=== PATIENT | female | born 1965 | race American Indian/Alaskan Native ===

== ENCOUNTER 2016-11-25 09:46 | Outpatient (CLI) | payer MEDICARE ==
--- NOTE | 2016-11-25 10:27 | Mammography Report ---
Bilateral mammogram: Compared to 11/16/14. CAD study utilized. Findings: Predominance and adipose tissue bilaterally. No mass or microcalcification. Benign axilla. Impression: Benign findings. Annual followup recommended. BI-RADS CATEGORY: 2 = Benign ACR BI-RADS MAMMOGRAPHIC CODES: 0 = Needs additional imaging evaluation; 1 = Negative; 2 = Benign; 3 = Probably benign; 4 = Suspicious; 5 = Malignant; 6 = Known biopsy-proven malignancy COMMENT: 1. Dense breast tissue, i.e., adenosis, fibrocystic changes, etc., may obscure an underlying neoplasm. 2. Approximately 10% of cancers are not detected with mammography. 3. A negative mammography report should not delay biopsy if a clinically suspicious mass is present. COMMENT: Patient follow-up letters are generated in [employer].
== END 2016-11-25 09:47 | disposition home or self-care (01) ==
LOC: MAMMO 09:46
PROVIDERS: ATTEND Internal Medicine
DX: Z12.31 Encounter for screening mammogram for malignant neoplasm of breast (principal); I10 Essential (primary) hypertension; I26.99 Other pulmonary embolism without acute cor pulmonale
CPT/HCPCS: 77067; G0202

== ENCOUNTER 2017-12-02 12:46 | Outpatient (CLI) | payer MEDICARE ==
--- NOTE | 2017-12-02 14:21 | Mammography Report ---
BILATERAL DIGITAL SCREENING MAMMOGRAM with CAD: 12/02/17 12:46:00 CLINICAL: Routine screening. COMPARISON:11/25/16 FINDINGS: The breasts are almost entirely fatty. No mass, architectural distortion or suspicious calcifications. IMPRESSION: No mammographic evidence of malignancy. BI-RADS CATEGORY: 1 - - Negative RECOMMENDATION: Routine mammographic screening in one year. COMMENT: Patient follow-up letters are generated by our [employer] application.
== END 2017-12-02 12:47 | disposition home or self-care (01) ==
LOC: MAMMO 12:46
PROVIDERS: ATTEND Internal Medicine
DX: Z12.31 Encounter for screening mammogram for malignant neoplasm of breast (principal)
CPT/HCPCS: 77067

== ENCOUNTER 2018-12-05 10:27 | Outpatient (CLI) | payer MEDICARE ==
--- NOTE | 2018-12-05 11:38 | Mammography Report ---
DIGITAL SCREENING MAMMOGRAM WITH CAD INDICATION: Routine screening mammography. TECHNIQUE: Digital bilateral 2D mammography was obtained in the craniocaudal and mediolateral obliq ue projections. This examination was interpreted with the benefit of Computer-Aided Detection analysi s. COMPARISON: 12/02/2017 FINDINGS: Breast Density: The breasts are almost entirely fatty. There is no evidence of dominant mass, suspicious calcifications or architectural distortion in eith er breast. IMPRESSION: BI-RADS Category 1: Negative. No mammographic evidence of malignancy. Recommend routine screening m ammography in one year. A "normal" or negative report should not discourage follow up or biopsy of a clinically significant f inding. A written summary of these findings will be mailed to the patient. The patient will be entered into a mammography reporting system which will generate a reminder letter for the patient's next appointmen t at the appropriate interval. The [employer] recommends yearly mammograms starting at age 40 and continuing as l winsome as a woman is in good health. Breast MRI is recommended for women with an approximate 20-25% or greater lifetime risk of breast cancer, including women with a strong family history of breast or ova cristhian cancer or who have been treated for Hodgkin's disease. Signer Name: Frantz Cabrera MD Signed: 12/05/2018 11:33 AM Workstation Name: [id number]
== END 2018-12-05 10:28 | disposition home or self-care (01) ==
LOC: MAMMO 10:27
PROVIDERS: ATTEND Internal Medicine
DX: Z12.31 Encounter for screening mammogram for malignant neoplasm of breast (principal); I10 Essential (primary) hypertension
CPT/HCPCS: 77067

== ENCOUNTER 2020-11-19 08:47 | Emergency (ER) | payer MEDICARE ==
--- NOTE | 2020-11-19 09:00 | Emergency Department Report ---
ED Neuro Deficit HPI - General Chief Complaint: Dizziness Stated Complaint: DIZZY,HTN Time Seen by Provider: 11/19/20 08:51 Source: patient Mode of arrival: Stretcher Limitations: No Limitations - History of Present Illness Initial Comments: CC: headache, dizziness HPI: This is a 55 yo female with hx of HTN, DM, dyslipidemia, DVT, PE who presents with dizzness and headache upon awakening this monring. She awakened 5:30 AM to walk to bathroom. She noticed room spinning. She had difficulty keeping her balalnce. She went to bed. She had difficulty changing position. She called her son for assistance. EMS called for transport. She now has right sided pounding headache 9/10 in severity. She has had similar headache in the past. Years ago, she was diagnosed with vertigo. After extensive ENT evaluation, vertigo was not the final diagnosis according to patient's report. Vertigo-type dizziness room spinning sensation has spontaneously resolved today. Medications Pravastatin 40 mg Losartan 100 mg Amlodipine benazepril 2.5-10 mg discontinued by pharmacist Metformin 500 mg NovoLog 20 units in the morning 30 units in the evening Levemir 70 units in the morning 40 units in the evening -: This morning Location: other (Vertigo) History of same: Yes Place: home Severity: moderate Improves With: time On Anticoagulants: No Context: other (Upon awakening) Associated Symptoms: other (Difficulty walking) Treatments Prior to Arrival: other (EMS transport) - Related Data Home Medications: Home Medications Medication Instructions Recorded Confirmed Last Taken Insulin Aspart (Nf) [NovoLOG 100 0 unit SQ AC 10/09/13 10/09/13 Unknown UNITS/ML VIAL] Insulin Detemir [Levemir Flexpen] 50 unit SQ BID 10/09/13 10/09/13 Unknown Metformin HCl [Glucophage] 1,000 mg PO BID 10/09/13 10/09/13 Unknown Pioglitazone HCl [Actos] 15 mg PO QDAY 10/09/13 10/09/13 Unknown Pravastatin [Pravachol] 40 mg PO QHS 10/09/13 10/09/13 Unknown Valsartan/Hydrochlorothiazide 1 each PO QDAY 10/09/13 10/09/13 Unknown [Valsartan-Hctz 320-25 mg] Previous Rx's Medication Instructions Recorded Last Taken Type Diphenoxylate HCl/Atropine 1 tab-cap PO Q6HR PRN #30 tablet 10/10/13 Unknown Rx [Lomotil 2.5-0.025 mg Tablet] Meclizine [Antivert] 25 mg PO Q8H PRN #30 tablet 10/10/13 Unknown Rx Allergies/Adverse Reactions: Allergies Allergy/AdvReac Type Severity Reaction Status Date / Time acetaminophen [From Lortab] AdvReac Unknown Unverified 11/25/16 09:46 hydrocodone bitartrate AdvReac Unknown Unverified 11/25/16 09:46 [From Lortab] ED Review of Systems ROS: Stated complaint: DIZZY,HTN Other details as noted in HPI Comment: All other systems reviewed and negative Constitutional: denies: fever, malaise Respiratory: denies: cough, shortness of breath Cardiovascular: denies: chest pain Neurological: headache, abnormal gait, vertigo. denies: numbness, paresthesias, confusion ED Past Medical Hx - Past Medical History Previous Medical History?: Yes Hx Hypertension: Yes Hx CVA: No Hx Heart Attack/AMI: No Hx Congestive Heart Failure: No Hx Diabetes: Yes Hx Deep Vein Thrombosis: Yes Hx Pulmonary Embolism: Yes Hx GERD: No Hx Liver Disease: No Hx Renal Disease: No Hx Sickle Cell Disease: No Hx Arthritis: No Hx Headaches / Migraines: No Hx Seizures: No Hx Kidney Stones: No Hx Psychiatric Treatment: No Hx Asthma: No Hx COPD: No Hx Tuberculosis: No Hx Dementia: No Hx HIV: No Additional medical history: High cholesterol - Surgical History Past Surgical History?: Yes Additional Surgical History: Lining of uterus removed - Social History Smoking Status: Never Smoker - Medications Home Medications: Home Medications Medication Instructions Recorded Confirmed Last Taken Type Insulin Aspart (Nf) [NovoLOG 100 0 unit SQ AC 10/09/13 10/09/13 Unknown History UNITS/ML VIAL] Insulin Detemir [Levemir Flexpen] 50 unit SQ BID 10/09/13 10/09/13 Unknown History Metformin HCl [Glucophage] 1,000 mg PO BID 10/09/13 10/09/13 Unknown History Pioglitazone HCl [Actos] 15 mg PO QDAY 10/09/13 10/09/13 Unknown History Pravastatin [Pravachol] 40 mg PO QHS 10/09/13 10/09/13 Unknown History Valsartan/Hydrochlorothiazide 1 each PO QDAY 10/09/13 10/09/13 Unknown History [Valsartan-Hctz 320-25 mg] Diphenoxylate HCl/Atropine 1 tab-cap PO Q6HR PRN #30 tablet 10/10/13 Unknown Rx [Lomotil 2.5-0.025 mg Tablet] Meclizine [Antivert] 25 mg PO Q8H PRN #30 tablet 10/10/13 Unknown Rx ED Neuro Physical Exam - General Limitations: No Limitations General appearance: alert, in no apparent distress Suspected Stroke: No - Head Head exam: Present: atraumatic, normocephalic - Eye Eye exam: Present: normal appearance - ENT ENT exam: Present: mucous membranes moist - Neck Neck exam: Present: normal inspection, full ROM - Respiratory Respiratory exam: Present: normal lung sounds bilaterally. Absent: respiratory distress, wheezes, rales, rhonchi - Cardiovascular Cardiovascular Exam: Present: regular rate, normal rhythm, normal heart sounds. Absent: systolic murmur, diastolic murmur, rubs, gallop - GI/Abdominal GI/Abdominal exam: Present: soft, normal bowel sounds. Absent: distended, tenderness, guarding, rebound - Extremities Exam Extremities exam: Present: normal inspection - Neurological Exam Neurological exam: Present: alert, oriented X3 - NIHSS Assessment Interval: Baseline 1a. Level of Consciousness: alert/keenly responsive 1b. LOC Questions: answers both correctly 1c. LOC Commands: performs tasks correctly 2. Best Gaze: normal 3. Visual: no visual loss 4. Facial Palsy: normal symmetrical movement 5b. Motor Arm Right: no drift 5a. Motor Arm Left: no drift 6a. Motor Leg Left: no drift 6b. Motor Leg Right: no drift 7. Limb Ataxia: absent 8. Sensory: normal 9. Best Language: no aphasia 10. Dysarthria: normal 11. Extinction/Inattention: no abnormality Total Score: 0 Stroke Severity: No Stroke Symptoms - Psychiatric Psychiatric exam: Present: normal affect, normal mood - Skin Skin exam: Present: warm, dry, intact, normal color. Absent: rash ED Course Vital Signs 11/19/20 11/19/20 11/19/20 08:49 08:52 09:09 Pulse Rate 101 H Respiratory 18 21 Rate Blood Pressure Blood Pressure 233/115 [Right] O2 Sat by Pulse 98 95 98 Oximetry 11/19/20 11/19/20 11/19/20 09:13 09:16 09:30 Pulse Rate 94 H 94 H 85 Respiratory 25 H 26 H Rate Blood Pressure 174/103 233/115 Blood Pressure [Right] O2 Sat by Pulse 98 97 Oximetry 11/19/20 11/19/20 09:46 10:16 Pulse Rate 84 83 Respiratory 19 19 Rate Blood Pressure 174/103 146/86 Blood Pressure [Right] O2 Sat by Pulse 98 95 Oximetry - Lab Data Result diagrams: 11/19/20 09:32 11/19/20 09:32 Lab Results 11/19/20 11/19/20 11/19/20 Range/Units 09:32 09:32 09:32 WBC 8.2 (4.5-11.0) K/mm3 RBC 4.53 (3.65-5.03) M/mm3 Hgb 13.7 (10.1-14.3) gm/dl Hct 40.7 (30.3-42.9) % MCV 90 (79-97) fl MCH 30 (28-32) pg MCHC 34 (30-34) % RDW 15.5 H (13.2-15.2) % Plt Count 250 (140-440) K/mm3 Lymph % (Auto) Outbound Supervisor [facility] % (Auto) Outbound Supervisor Eos % (Auto) Outbound Supervisor Baso % (Auto) Outbound Supervisor Lymph # (Auto) Outbound Supervisor [facility] # (Auto) Outbound Supervisor Eos # (Auto) Outbound Supervisor Baso # (Auto) Outbound Supervisor Seg Neutrophils % Outbound Supervisor Seg Neutrophils # Outbound Supervisor PT 12.9 (12.2-14.9) Sec. INR 0.92 (0.87-1.13) APTT 26.4 (24.2-36.6) Sec. Sodium 137 (137-145) mmol/L Potassium 4.4 (3.6-5.0) mmol/L Chloride 97.6 L (98-107) mmol/L Carbon Dioxide 31 H (22-30) mmol/L Anion Gap 13 mmol/L BUN 14 (7-17) mg/dL Creatinine 0.8 (0.6-1.2) mg/dL Estimated GFR > 60 ml/min BUN/Creatinine Ratio 18 % Glucose 287 H (65-100) mg/dL Calcium 9.4 (8.4-10.2) mg/dL Total Bilirubin 0.30 (0.1-1.2) mg/dL AST 23 (5-40) units/L ALT 25 (7-56) units/L Alkaline Phosphatase 105 (35-129) units/L Troponin T < 0.010 (0.00-0.029) ng/mL NT-Pro-B Natriuret Pep 15.22 (0-900) pg/mL Total Protein 7.2 (6.3-8.2) g/dL Albumin 4.1 (3.9-5) g/dL Albumin/Globulin Ratio 1.3 % - EKG Data -: EKG Interpreted by Ar EKG shows normal: sinus rhythm, axis Rate: normal 11/19/20 09:40 EKG obtained 0934 EKG interpreted by me Rate 85 bpm normal axis prolonged IN interval normal QTC no ST elevation poor R wave progression anterior leads nonischemic T wave pattern - Radiology Data Radiology results: report reviewed Patient Name: KARINA HDEZ Gender: Female Date of : 1965 Referring Provider: DAVIS GARRETT Organization: [facility] Accession Number: [id number] Requested Date: November 19, 2020 08:52 Report Status: Final Requested Procedure: 1 Procedure Description: XR chest 1V ap Modality: XR Findings Reporting MD: Gopi Bird Dictation Time: November 19, 2020 08:17 Autocad Operator: Not available Bomb Squad Officer Date: CHEST 1 VIEW INDICATION: stroke symptoms. COMPARISON: None FINDINGS: Support devices: None. Heart: Within normal limits. Lungs/Pleura: No acute air space or interstitial disease. Additional findings: None. IMPRESSION: No acute findings. Signer Name: Gopi Bird Jr, MD Signed: 11/19/2020 8:17 AM Workstation Name: [id number] Findings Reporting MD: Malika Romero Dictation Time: November 19, 2020 08:37 Autocad Operator: Not available Bomb Squad Officer Date: NONENHANCED CT SCAN OF THE HEAD: INDICATION / CLINICAL INFORMATION: 55 years Female; Stroke symptoms. TECHNIQUE: Routine CT head without contrast. All CT scans at this location are performed using CT dose reduction for ALARA by means of automated exposure control. COMPARISON: None. FINDINGS: BRAIN / INTRACRANIAL CONTENTS: No acute hemorrhage, mass effect, midline shift, hydrocephalus, or acute, large territorial infarct. Subtle streaky chronic ischemic area in the left cerebellar hemispheric white matter confluent periventricular and deep hemispheric white matter low intensity attenuation areas due to chronic small vessel disease; middle cerebral arteries, internal carotid artery termination, basilar tip in the branches of the middle cerebral artery in the sylvian fissure are normal CRANIOCERVICAL JUNCTION: No significant abnormality. ORBITS: No significant abnormality of visualized orbits. SINUSES / MASTOIDS: No significant abnormality of the visualized paranasal sinuses or mastoid air cells. ADDITIONAL FINDINGS: None. IMPRESSION: No intracerebral hemorrhage or stroke mimics; no acute focal parenchymal lesion Signer Name: Malika Romero MD Signed: 11/19/2020 8:37 AM Workstation Name: [id number] - Medical Decision Making 1. Benign positional vertigo: Patient has had recurrence of thisymptoms, with morning onset typical presentation for BPH, patient did not have associated neurological symptoms. 2. Hypertensive urgency due to medication noncompliance. Patient stopped taking amlodipine benazepril after consulting pharmacist. He felt as if she was taking too much medication. She only takes losartan at this time. 3. Tension headache: Resolved with blood pressure control and observation. ~Headache for patient. Patient feels well at this time. No indication of CVA. CBC chemistry within normal limits. CT head without contrast revealed chronic nonspecific findings. - Differential Diagnosis CVA, intracranial mass Critical Care Time: Yes Critical care time in (mins) excluding proc time.: 40 Critical care attestation.: If time is entered above; I have spent that time in minutes in the direct care of this critically ill patient, excluding procedure time. 40 minutes of critical care time excluding procedures were used in the care of the patient. I came immediately to the bedside upon patient's arrival. I screened patient for stroke symptoms at the ambulance bay. I obtained history from EMS at the bedside. I discussed treatment plan with the nursing team members. I reviewed electronic record. I kept the family members informed. Patient required multiple interventions and reassessments. ED Disposition Clinical Impression: Benign positional vertigo, Hypertensive urgency, Tension headache Disposition: DC-01 TO HOME OR SELFCARE Is pt being admited?: No Does the pt Need Aspirin: No Condition: Stable Instructions: Tension Headache, Adult, [id number], Vertigo, [id number], Man aging Your Hypertension Referrals: SOLO FATIMA MD [Primary Care Provider] - 3-5 Days
--- NOTE | 2020-11-19 09:21 | XRay Report ---
CHEST 1 VIEW INDICATION: stroke symptoms. COMPARISON: None FINDINGS: Support devices: None. Heart: Within normal limits. Lungs/Pleura: No acute air space or interstitial disease. Additional findings: None. IMPRESSION: No acute findings. Signer Name: Gopi Bird Jr, MD Signed: 11/19/2020 9:17 AM Workstation Name: [id number]
--- NOTE | 2020-11-19 09:41 | Cat Scan Report ---
NONENHANCED CT SCAN OF THE HEAD: INDICATION / CLINICAL INFORMATION: 55 years Female; Stroke symptoms. TECHNIQUE: Routine CT head without contrast. All CT scans at this location are performed using CT dos e reduction for ALARA by means of automated exposure control. COMPARISON: None. FINDINGS: BRAIN / INTRACRANIAL CONTENTS: No acute hemorrhage, mass effect, midline shift, hydrocephalus, or acu te, large territorial infarct. Subtle streaky chronic ischemic area in the left cerebellar hemispheri c white matter confluent periventricular and deep hemispheric white matter low intensity attenuation areas due to chronic small vessel disease; middle cerebral arteries, internal carotid artery terminat ion, basilar tip in the branches of the middle cerebral artery in the sylvian fissure are normal CRANIOCERVICAL JUNCTION: No significant abnormality. ORBITS: No significant abnormality of visualized orbits. SINUSES / MASTOIDS: No significant abnormality of the visualized paranasal sinuses or mastoid air nandini ls. ADDITIONAL FINDINGS: None. IMPRESSION: No intracerebral hemorrhage or stroke mimics; no acute focal parenchymal lesion Signer Name: Malika Romero MD Signed: 11/19/2020 9:37 AM Workstation Name: [email or web address]
[2020-11-19 10:06] LABS: Hematocrit 40.7 % (30.3-42.9); Hemoglobin 13.7 gm/dl (10.1-14.3); Mean Corpuscular HGB Conc 34 % (30-34); Mean Corpuscular Volume 90 fl (79-97); Platelet Count 250 K/mm3 (140-440); Red Blood Count 4.53 M/mm3 (3.65-5.03); Red Cell Distribution Width 15.5 % (13.2-15.2)
[2020-11-19 10:08] LABS: Alanine Aminotransferase 25 units/L (7-56); Albumin 4.1 g/dL (3.9-5); BUN/Creatinine Ratio 18; Blood Urea Nitrogen 14 mg/dL (7-17); Calcium 9.4 mg/dL (8.4-10.2); Hemolysis Index 8
[2020-11-19 10:18] LABS: INR 0.92 (0.87-1.13)
[2020-11-19 10:19] LABS: Partial Thromboplastin Time 26.4 Sec. (24.2-36.6)
[2020-11-19 11:02] VITALS: BP 153/86
--- NOTE | 2020-11-20 19:22 | Electrocardiograph Report ---
[facility] Test Date: 2020-11-19 Test Time: 09:34:53 Pat Name: KARINA HDEZ Department: Room: Gender: F Aircraft Pilot: MARLA : 1965 Requested By: DAVIS GARRETT Order Number: [id number] Reading MD: Kendall Tilley Measurements Intervals [place] Rate: 85 P: 8 NM: 221 QRS: 11 QRSD: 84 T: 9 QT: 380 QTc: 453 Interpretive Statements Sinus rhythm Prolonged NM interval Consider anterior infarct No previous ECG available for comparison Electronically Signed On 11-20-2020 19:22:10 EDT by Kendall Tilley
== END 2020-11-19 11:00 | disposition home or self-care (01) ==
LOC: ED 08:47
DX: H81.10 Benign paroxysmal vertigo, unspecified ear (principal); I16.0 Hypertensive urgency; G44.209 Tension-type headache, unspecified, not intractable; I10 Essential (primary) hypertension; E11.9 Type 2 diabetes mellitus without complications; E78.00 Pure hypercholesterolemia, unspecified; Z86.718 Personal history of other venous thrombosis and embolism; Z86.711 Personal history of pulmonary embolism; Z98.890 Other specified postprocedural states; Z88.6 Allergy status to analgesic agent; Z88.5 Allergy status to narcotic agent; Z79.899 Other long term (current) drug therapy
CPT/HCPCS: 36415; 70450; 71045; 80053; 83880; 84484; 85025; 85610; 85730; 93005; 96374; 99284; 99285

== ENCOUNTER 2020-12-13 12:19 | Emergency (ER) | payer MEDICARE ==
--- NOTE | 2020-12-13 15:01 | Event Note ---
ED Screening Note Date of service: 12/13/20 Time: 14:57 ED Screening Note: 55-year-old female patient with history of diabetes and hypertension presents to the emergency department with complaints of painful discoloration to her left great toe for approximately 2 weeks. Patient states her family noticed the skin color changes while on vacation in [place] last month. However, she has not consulted a physician since onset. She is not currently on antibiotics. Tachycardic and hypertensive in triage. General: Awake, appropriately interactive, no acute distress. Neck: Supple. Full range of motion intact. Cardiovascular: Normal peripheral perfusion. Pulmonary: No respiratory distress. Patient is speaking normally without use of accessory muscles. Skin: No apparent rashes or lesions. Neurological: No facial asymmetry. Speech is clear. Follows commands. Patient is alert and oriented. Musculoskeletal: Gangrenous tissue to the dorsal surface of the left great toe with pressure ulcer noted to the plantar aspect. Diminished sensation throughout. No purulent drainage. Psych: Cooperative. Appropriate mood and affect. Labs and imaging ordered. Choice of antibiotics deferred to additional ED providers following full history and comprehensive physical examination. I have greeted and performed a focused rapid initial assessment of this patient. A comprehensive ED assessment and evaluation of the patient, analysis of all test results, and completion of the medical decision-making process will be conducted by additional ED providers. This initial assessment/diagnostic orders/clinical plan/treatment(s) is/are subject to change based on patients health status, clinical progression and re-assessment. Further treatment and workup at subsequent clinical provider's discretion. Patient/guardian urged not to elope from the ED as their condition may be serious if not clinically assessed and managed.
--- NOTE | 2020-12-13 15:32 | XRay Report ---
LEFT FOOT 3 VIEWS 1509 INDICATION: left great toe infection, gangrene COMPARISON: None available. FINDINGS: Mild tarsal and ankle degenerative changes are seen. Slight arthritic changes are noted at the first metatarsophalangeal joint without significant hallux valgus. Mild hammertoe deformity is no rob of the second through fifth digits. No fractures or dislocations are seen. Mild inferior and post erior calcaneal spurring are noted. No obvious acute bony erosions are seen to suggest osteomyelitis radiographically. No soft tissue gas is noted. Foreign bodies are seen. If there is a strong clinical concern for osteomyelitis, MR is suggested. Signer Name: Tio Nathan MD Signed: 12/13/2020 3:27 PM Workstation Name: [id number]
[2020-12-13 15:56] LABS: Basophils # (Auto) 0.1 K/mm3 (0.0-0.1); Basophils % (Auto) 0.8 % (0.0-1.8); Eosinophils % (Auto) 0.6 % (0.0-4.3); Hematocrit 43.1 % (30.3-42.9); Hemoglobin 14.3 gm/dl (10.1-14.3); Lymphocytes # (Auto) 2.6 K/mm3 (1.2-5.4); Lymphocytes % (Auto) 32.5 % (13.4-35.0); Mean Corpuscular HGB Conc 33 % (30-34); Mean Corpuscular Volume 91 fl (79-97); Monocytes # (Auto) 0.6 K/mm3 (0.0-0.8); Monocytes % (Auto) 7.3 % (0.0-7.3); Platelet Count 250 K/mm3 (140-440); Red Blood Count 4.75 M/mm3 (3.65-5.03); Red Cell Distribution Width 15.8 % (13.2-15.2)
[2020-12-13 16:16] LABS: Alanine Aminotransferase 25 units/L (7-56); Albumin 4.3 g/dL (3.9-5); BUN/Creatinine Ratio 14; Blood Urea Nitrogen 11 mg/dL (7-17); Calcium 9.7 mg/dL (8.4-10.2); Hemolysis Index 15
[2020-12-13 17:26] LABS: Erythrocyte Sedimentation Rate 27 mm/Hr (0-20)
[2020-12-13] MEDS ORDERED: CLINDAMYCIN 300 MG CAP PO ONE (23:16)
--- NOTE | 2020-12-13 23:42 | Emergency Department Report ---
HPI - General Chief Complaint: Extremity Problem,Nontraumatic Time Seen by Provider: 12/13/20 22:52 - HPI HPI: This is a 55-year-old -[place] female presents to the emergency department with a complaint of a wound to the left great toe that has been going on and getting progressively worse since the end of October. She has noticed some darkening of the skin to the top of the toe and her son noticed an ulcerating wound to the toe pad. There has been some bleeding and some drainage. Patient has a past medical history of hypertension, diabetes, high cholesterol and previous DVT. She has not taken anything for symptoms prior to presentation t [facility]. No recent travel or sick contact at home. ED Past Medical Hx - Past Medical History Previous Medical History?: Yes Hx Hypertension: Yes Hx CVA: No Hx Heart Attack/AMI: No Hx Congestive Heart Failure: No Hx Diabetes: Yes Hx Deep Vein Thrombosis: Yes Hx Pulmonary Embolism: Yes Hx GERD: No Hx Liver Disease: No Hx Renal Disease: No Hx Sickle Cell Disease: No Hx Arthritis: No Hx Headaches / Migraines: No Hx Seizures: No Hx Kidney Stones: No Hx Psychiatric Treatment: No Hx Asthma: No Hx COPD: No Hx Tuberculosis: No Hx Dementia: No Hx HIV: No Additional medical history: High cholesterol - Surgical History Past Surgical History?: Yes Additional Surgical History: Lining of uterus removed - Social History Smoking Status: Never Smoker - Medications Home Medications: Home Medications Medication Instructions Recorded Confirmed Last Taken Type Insulin Aspart (Nf) [NovoLOG 100 0 unit SQ AC 10/09/13 10/09/13 Unknown History UNITS/ML VIAL] Insulin Detemir [Levemir Flexpen] 50 unit SQ BID 10/09/13 10/09/13 Unknown Hi story Metformin HCl [Glucophage] 1,000 mg PO BID 10/09/13 10/09/13 Unknown History Pioglitazone HCl [Actos] 15 mg PO QDAY 10/09/13 10/09/13 Unknown History Pravastatin [Pravachol] 40 mg PO QHS 10/09/13 10/09/13 Unknown History Valsartan/Hydrochlorothiazide 1 each PO QDAY 10/09/13 10/09/13 Unknown History [Valsartan-Hctz 320-25 mg] Diphenoxylate HCl/Atropine 1 tab-cap PO Q6HR PRN #30 tablet 10/10/13 Unknown Rx [Lomotil 2.5-0.025 mg Tablet] Meclizine [Antivert] 25 mg PO Q8H PRN #30 tablet 10/10/13 Unknown Rx Clindamycin [Clindamycin CAP] 300 mg PO Q6H #28 capsule 12/14/20 Unknown Rx ED Review of Systems ROS: Stated complaint: GANGRENE ON LT TOE Other details as noted in HPI Comment: All other systems reviewed and negative Constitutional: denies: chills, fever Eyes: denies: eye pain, vision change ENT: denies: ear pain, throat pain Respiratory: denies: cough, shortness of breath Cardiovascular: denies: chest pain, palpitations Gastrointestinal: denies: abdominal pain, vomiting Genitourinary: denies: dysuria, discharge Musculoskeletal: denies: back pain, arthralgia Skin: other (left great toe ulcer wound and darkening of skin). denies: pruritus Neurological: denies: headache, numbness Physical Exam - Physical Exam Vital Signs: Vital Signs 12/13/20 13:38 Temperature 98.3 F Pulse Rate 100 H Respiratory 16 Rate Blood Pressure 198/105 O2 Sat by Pulse 97 Oximetry Physical Exam: GENERAL: The patient is well-developed well-nourished. HENT: Normocephalic. Atraumatic. Patient has moist mucous membranes. EYES: Extraocular motions are intact. NECK: Supple. Trachea is midline. CHEST/LUNGS: Clear to auscultation. There is no respiratory distress noted. HEART/CARDIOVASCULAR: Regular. There is no tachycardia. There is no murmur. ABDOMEN: Abdomen is soft, nontender. Patient has normal bowel sounds. SKIN: Skin is warm and dry. There is a ulcerating wound that is stage III-IV to the pad of the left great toe. No current bleeding or purulent discharge. There is some darkening of the skin to the dorsal proximal portion of the left great toe. NEURO: The patient is awake, alert, and oriented. The patient is cooperative. The patient has no focal neurologic deficits. Normal speech. MUSCULOSKELETAL: There is some tenderness to palpation of the left great toe. Dorsalis pedis pulse +2/4 and capillary refill less than 2 seconds to the affected left lower extremity. There is no limitation range of motion. ED Course Vital Signs 12/13/20 13:38 Temperature 98.3 F Pulse Rate 100 H Respiratory 16 Rate Blood Pressure 198/105 O2 Sat by Pulse 97 Oximetry ED Medical Decision Making - Lab Data Result diagrams: 12/13/20 15:33 12/13/20 15:33 Lab Results 12/13/20 12/13/20 Range/Units 15:33 15:33 WBC 8.1 (4.5-11.0) K/mm3 RBC 4.75 (3.65-5.03) M/mm3 Hgb 14.3 (10.1-14.3) gm/dl Hct 43.1 H (30.3-42.9) % MCV 91 (79-97) fl MCH 30 (28-32) pg MCHC 33 (30-34) % RDW 15.8 H (13.2-15.2) % Plt Count 250 (140-440) K/mm3 Lymph % (Auto) 32.5 (13.4-35.0) % Barnes % (Auto) 7.3 (0.0-7.3) % Eos % (Auto) 0.6 (0.0-4.3) % Baso % (Auto) 0.8 (0.0-1.8) % Lymph # (Auto) 2.6 (1.2-5.4) K/mm3 Barnes # (Auto) 0.6 (0.0-0.8) K/mm3 Eos # (Auto) 0.0 (0.0-0.4) K/mm3 Baso # (Auto) 0.1 (0.0-0.1) K/mm3 Seg Neutrophils % 58.8 (40.0-70.0) % Seg Neutrophils # 4.8 (1.8-7.7) K/mm3 ESR 27 (0-20) mm/Hr Sodium 138 (137-145) mmol/L Potassium 4.2 (3.6-5.0) mmol/L Chloride 97.0 L (98-107) mmol/L Carbon Dioxide 34 H (22-30) mmol/L Anion Gap 11 mmol/L BUN 11 (7-17) mg/dL Creatinine 0.8 (0.6-1.2) mg/dL Estimated GFR > 60 ml/min BUN/Creatinine Ratio 14 % Glucose 310 H (65-100) mg/dL Calcium 9.7 (8.4-10.2) mg/dL Total Bilirubin 0.40 (0.1-1.2) mg/dL AST 19 (5-40) units/L ALT 25 (7-56) units/L Alkaline Phosphatase 116 (35-129) units/L C-Reactive Protein 0.80 (0.00-1.30) mg/dL Total Protein 7.5 (6.3-8.2) g/dL Albumin 4.3 (3.9-5) g/dL Albumin/Globulin Ratio 1.3 % - Radiology Data Radiology results: report reviewed LEFT FOOT 3 VIEWS 1509 INDICATION: left great toe infection, gangrene COMPARISON: None available. FINDINGS: Mild tarsal and ankle degenerative changes are seen. Slight arthritic changes are noted at the first metatarsophalangeal joint without significant hallux valgus. Mild hammertoe deformity is noted of the second through fifth digits. No fractures or dislocations are seen. Mild inferior and posterior calcaneal spurring are noted. No obvious acute bony erosions are seen to suggest osteomyelitis radiographically. No soft tissue gas is noted. Foreign bodies are seen. If there is a strong clinical concern for osteomyelitis, MR is suggested. - Medical Decision Making This patient presents to the emergency department for evaluation of a left great toe ulcerating wound that has been going on for the past 3 to 4 weeks. There is a stage III-IV ulcerating wound seen to the pad of the left great toe. There is also some darkening of the skin to the dorsal portion of that toe. Dorsalis pedis pulses +2/4 and capillary refill is less than 2 seconds. X-ray of the left foot, including the left great toe, does not show any evidence of osteomyelitis or soft tissue gas. Patient's labs shows hyperglycemia with a blood sugar of about 300, without evidence of ketoacidosis. There is no elevation in the anion gap. Labs do not show any significant leukocytosis. The patient does not appear to have any emergent condition that requires admission or surgical intervention. She has a diabetic ulcerating toe wound that will need outpatient follow-up with Dr. Domingo and/or wound care. The patient has been started on antibiotics. We discussed cleaning the area with soap and water and then making sure it remains dry. We also discussed signs and symptoms of worsening infection for which the patient will need emergent return to the closest ER. She was given a dose of antibiotics here and a prescription for home. All of patient's questions were answered and the patient agrees to the plan. I personally checked this patient's blood pressure prior to discharge and it had come down to 155/94 without any antihypertensive medication given. Critical Care Time: No Critical care attestation.: If time is entered above; I have spent that time in minutes in the direct care of this critically ill patient, excluding procedure time. ED Disposition Clinical Impression: Hyperglycemia Hypertension Qualifiers: Hypertension type: primary hypertension Qualified Code(s): I10 - Essential (primary) hypertension Diabetic toe ulcer Qualifiers: Diabetes mellitus type: type 1 Laterality: left Non-pressure ulcer stage: unspecified non-pressure ulcer stage Qualified Code(s): E10.621 - Type 1 diabetes mellitus with foot ulcer; L97.529 - Non-pressure chronic ulcer of other part of left foot with unspecified severity Disposition: - TO HOME OR SELFCARE Is pt being admited?: No Condition: Stable Instructions: Diabetes Mellitus and Foot Care, Hyperglycemia, Wound Care, Adult, Hypertension, Adult, Diabetes Mellitus Type 2 in Adults (ED), Hypertension (ED) Additional Instructions: Please follow-up with your primary care physician in the next few days. I am giving you a referral for Dr. Domingo, a general surgeon who does wound care. I have also given you a referral for the wound care clinic. Take all medications as prescribed. Try to stay away from foods that are high in salt and caffeinated products. Take your blood pressure medications. Keep a blood pressure log. Try to stay away from foods that are high in sugar, carbohydrates and starches. Take your diabetes medications. Keep a blood sugar log. Clean your toe wound/ulcer with soap and water and then make sure it remains dry. Please make sure you are seen immediately with any increased signs/symptoms of infection including increased pain, swelling, surrounding redness, increased color changes, development of fever. Return to the emergency department with any worsening of your symptoms, new or concerning symptoms not addressed during this current emergency department visit, or with any acute distress. Prescriptions: Clindamycin [Clindamycin CAP] 300 mg PO Q6H #28 capsule Referrals: PRIMARY CAREMD [Primary Care Provider] - 2-3 Days JO DOMINGO MD [Staff Physician] - 2-3 Days [facility] [Outside] - 2-3 Days Time of Disposition: 00:25
[2020-12-14 01:41] VITALS: BP 158/84
== END 2020-12-14 01:00 | disposition home or self-care (01) ==
LOC: ED 12:19
DX: E11.621 Type 2 diabetes mellitus with foot ulcer (principal); E11.65 Type 2 diabetes mellitus with hyperglycemia; I10 Essential (primary) hypertension; Z98.890 Other specified postprocedural states; Z79.4 Long term (current) use of insulin; Z79.899 Other long term (current) drug therapy; Z88.8 Allergy status to other drugs, medicaments and biological substances
CPT/HCPCS: 36415; 80053; 85025; 85652; 86140

== ENCOUNTER 2021-04-16 13:29 | Inpatient (IN) | payer MEDICARE ==
--- NOTE | 2021-04-16 13:58 | Emergency Department Report ---
ED Neuro Deficit HPI - General Chief Complaint: Neuro Symptoms/Deficit Stated Complaint: SLURRED SPEECH Time Seen by Provider: 04/16/21 13:48 Source: patient, RN notes reviewed, old records reviewed Mode of arrival: Ambulatory Limitations: Physical Limitation - History of Present Illness Initial Comments: This patient is a 56-year-old female. 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 Patient was admitted to the hospital December 2020 for stroke. She had an MRI which confirmed a stroke. She presents to the ER today with a complaint of "I think I had a stroke." The patient complains of painless dysarthria. She believes her last known well time is 3:00 PM yesterday. She has chronic right-sided weakness from a prior stroke. She denies physical pain at this time. She denies cough, urinary symptoms. -: hour(s) Location: speech Presenting Symptoms: Present: Unable to Speak Clearly History of same: Yes Severity: moderate Improves With: none Worsens With: none On Anticoagulants: No Context: other (Started at 3:00 yesterday) - Related Data Home Medications: Home Medications Medication Instructions Recorded Confirmed Last Taken Insulin Aspart (Nf) [NovoLOG 100 0 unit SQ AC 10/09/13 01/21/21 01/18/21 UNITS/ML VIAL] Insulin Detemir [Levemir Flexpen] 50 unit SQ BID 10/09/13 01/21/21 01/18/21 Metformin HCl [Glucophage] 1,000 mg PO BID 10/09/13 01/21/21 01/18/21 Pioglitazone HCl [Actos] 15 mg PO QDAY 10/09/13 01/21/21 01/18/21 Valsartan/Hydrochlorothiazide 1 each PO QDAY 10/09/13 01/21/21 01/18/21 [Valsartan-Hctz 320-25 mg] Previous Rx's Medication Instructions Recorded Last Taken Type Diphenoxylate HCl/Atropine 1 tab-cap PO Q6HR PRN #30 tablet 10/10/13 01/18/21 Rx [Lomotil 2.5-0.025 mg Tablet] Meclizine [Antivert] 25 mg PO Q8H PRN #30 tablet 10/10/13 01/14/21 Rx Aspirin 325 mg PO QDAY #30 tablet 01/21/21 Unknown Rx AtorvaSTATin [Lipitor] 40 mg PO QHS #30 tablet 01/21/21 Unknown Rx amLODIPine 5 mg PO QDAY #30 tablet 01/21/21 Unknown Rx Allergies/Adverse Reactions: Allergies Allergy/AdvReac Type Severity Reaction Status Date / Time acetaminophen [From Lortab] AdvReac Unknown Unverified 11/25/16 09:46 hydrocodone bitartrate AdvReac Unknown Unverified 11/25/16 09:46 [From Lortab] ED Review of Systems ROS: Stated complaint: SLURRED SPEECH Other details as noted in HPI Constitutional: denies: fever Eyes: denies: eye discharge ENT: denies: epistaxis Respiratory: denies: cough Cardiovascular: denies: chest pain Gastrointestinal: denies: abdominal pain Genitourinary: denies: dysuria Neurological: weakness (Chronic weakness), other (New onset dysarthria) ED Past Medical Hx - Past Medical History Previous Medical History?: Yes Hx Hypertension: Yes Hx CVA: No Hx Heart Attack/AMI: No Hx Congestive Heart Failure: No Hx Diabetes: Yes Hx Deep Vein Thrombosis: Yes Hx Pulmonary Embolism: Yes Hx GERD: No Hx Liver Disease: No Hx Renal Disease: No Hx Sickle Cell Disease: No Hx Arthritis: No Hx Headaches / Migraines: No Hx Seizures: No Hx Kidney Stones: No Hx Psychiatric Treatment: No Hx Asthma: No Hx COPD: No Hx Tuberculosis: No Hx Dementia: No Hx HIV: No Additional medical history: High cholesterol - Surgical History Past Surgical History?: Yes Additional Surgical History: Lining of uterus removed - Social History Smoking Status: Never Smoker Substance Use Type: None - Medications Home Medications: Home Medications Medication Instructions Recorded Confirmed Last Taken Type Insulin Aspart (Nf) [NovoLOG 100 0 unit SQ AC 10/09/13 01/21/21 01/18/21 History UNITS/ML VIAL] Insulin Detemir [Levemir Flexpen] 50 unit SQ BID 10/09/13 01/21/21 01/18/21 History Metformin HCl [Glucophage] 1,000 mg PO BID 10/09/13 01/21/21 01/18/21 History Pioglitazone HCl [Actos] 15 mg PO QDAY 10/09/13 01/21/21 01/18/21 History Valsartan/Hydrochlorothiazide 1 each PO QDAY 10/09/13 01/21/21 01/18/21 History [Valsartan-Hctz 320-25 mg] Diphenoxylate HCl/Atropine 1 tab-cap PO Q6HR PRN #30 tablet 10/10/13 01/21/21 01/18/21 Rx [Lomotil 2.5-0.025 mg Tablet] Meclizine [Antivert] 25 mg PO Q8H PRN #30 tablet 10/10/13 01/21/21 01/14/21 Rx Aspirin 325 mg PO QDAY #30 tablet 01/21/21 Unknown Rx AtorvaSTATin [Lipitor] 40 mg PO QHS #30 tablet 01/21/21 Unknown Rx amLODIPine 5 mg PO QDAY #30 tablet 01/21/21 Unknown Rx ED Neuro Physical Exam - General Limitations: Physical Limitation General appearance: alert, anxious, obese Suspected Stroke: Yes - Head Head exam: Present: atraumatic, normocephalic - Eye Eye exam: Present: normal appearance, EOMI, other (Status post cataract surgery in the bilateral eyes. Visual acuity intact to finger counting, color pe rception, reading at a close distance). Absent: nystagmus - ENT ENT exam: Present: normal exam, normal orophraynx, mucous membranes moist, normal external ear exam - Neck Neck exam: Present: normal inspection, full ROM. Absent: tenderness, meningismus - Respiratory Respiratory exam: Present: normal lung sounds bilaterally. Absent: respiratory distress, wheezes, rales, rhonchi, stridor - Cardiovascular Cardiovascular Exam: Present: regular rate, normal rhythm, normal heart sounds. Absent: bradycardia, tachycardia, irregular rhythm, systolic murmur, diastolic murmur, rubs, gallop - GI/Abdominal GI/Abdominal exam: Present: soft. Absent: distended, tenderness, guarding, rebound, rigid, pulsatile mass - Extremities Exam Extremities exam: Present: normal inspection, full ROM (Left arm and left leg. Hemiparesis right arm and right leg), pedal edema (In the bilateral lower extremities, 1+), other (2+ pulses noted in the bilateral upper and lower extremities. There is no palpable cord. negative Homans sign. Muscular compartments are soft. The pelvis is stable.) - Back Exam Back exam: Present: normal inspection. Absent: tenderness, CVA tenderness (R), CVA tenderness (L), paraspinal tenderness, vertebral tenderness - Neurological Exam Neurological exam: Present: alert, motor sensory deficit (The patient is dysarthric. 3 out of 5 strength right arm and right leg. Sensation intact to light touch left arm and left leg. Decreased sensation to light touch right arm and right leg.) - NIHSS Assessment Interval: Baseline 1a. Level of Consciousness: alert/keenly responsive 1b. LOC Questions: answers both correctly 1c. LOC Commands: performs tasks correctly 2. Best Gaze: normal 3. Visual: no visual loss 4. Facial Palsy: normal symmetrical movement 5b. Motor Arm Right: some gravity effort 5a. Motor Arm Left: drift 6a. Motor Leg Left: drift 6b. Motor Leg Right: some gravity effort 7. Limb Ataxia: present 1 limb 8. Sensory: mild/moderate sensory loss 9. Best Language: no aphasia 10. Dysarthria: mild/moderate dysarthria 11. Extinction/Inattention: no abnormality Total Score: 9 Stroke Severity: Moderate Stroke - Psychiatric Psychiatric exam: Present: anxious - Skin Skin exam: Present: warm, dry, intact, normal color. Absent: rash ED Course Vital Signs 04/16/21 04/16/21 13:32 13:35 Temperature 98 F Pulse Rate 99 H Respiratory 16 Rate Blood Pressure 146/60 [Left] O2 Sat by Pulse 98 96 Oximetry Lab Results 04/16/21 04/16/21 04/16/21 Range/Units 13:43 14:17 14:17 WBC 6.4 (4.5-11.0) K/mm3 RBC 3.86 (3.65-5.03) M/mm3 Hgb 11.2 (10.1-14.3) gm/dl Hct 35.5 (30.3-42.9) % MCV 92 (79-97) fl MCH 29 (28-32) pg MCHC 32 (30-34) % RDW 15.7 H (13.2-15.2) % Plt Count 233 (140-440) K/mm3 Lymph % (Auto) 34.0 (13.4-35.0) % [place] % (Auto) 7.7 H (0.0-7.3) % Eos % (Auto) 0.7 (0.0-4.3) % Baso % (Auto) 0.2 (0.0-1.8) % Lymph # (Auto) 2.2 (1.2-5.4) K/mm3 [place] # (Auto) 0.5 (0.0-0.8) K/mm3 Eos # (Auto) 0.0 (0.0-0.4) K/mm3 Baso # (Auto) 0.0 (0.0-0.1) K/mm3 Seg Neutrophils % 57.4 (40.0-70.0) % Seg Neutrophils # 3.7 (1.8-7.7) K/mm3 PT 12.8 (12.2-14.9) Sec. INR 0.87 (0.87-1.13) APTT 25.7 (24.2-36.6) Sec. Thrombin Time 18.8 (15.1-19.6) Sec. Sodium (137-145) mmol/L Potassium (3.6-5.0) mmol/L Chloride (98-107) mmol/L Carbon Dioxide (22-30) mmol/L Anion Gap mmol/L BUN (7-17) mg/dL Creatinine (0.6-1.2) mg/dL Estimated GFR ml/min BUN/Creatinine Ratio % Glucose (65-100) mg/dL POC Glucose 143 H (70-105) mg/dL Calcium (8.4-10.2) mg/dL Total Bilirubin (0.1-1.2) mg/dL AST (5-40) units/L ALT (7-56) units/L Alkaline Phosphatase (35-129) units/L Total Creatine Kinase (30-135) units/L CK-MB (CK-2) (0.0-4.0) ng/mL CK-MB (CK-2) Rel Index (0-4) Troponin T (0.00-0.029) ng/mL Total Protein (6.3-8.2) g/dL Albumin (3.9-5) g/dL Albumin/Globulin Ratio % 04/16/ Range/Units 14:17 WBC (4.5-11.0) K/mm3 RBC (3.65-5.03) M/mm3 Hgb (10.1-14.3) gm/dl Hct (30.3-42.9) % MCV (79-97) fl MCH (28-32) pg MCHC (30-34) % RDW (13.2-15.2) % Plt Count (140-440) K/mm3 Lymph % (Auto) (13.4-35.0) % [place] % (Auto) (0.0-7.3) % Eos % (Auto) (0.0-4.3) % Baso % (Auto) (0.0-1.8) % Lymph # (Auto) (1.2-5.4) K/mm3 [place] # (Auto) (0.0-0.8) K/mm3 Eos # (Auto) (0.0-0.4) K/mm3 Baso # (Auto) (0.0-0.1) K/mm3 Seg Neutrophils % (40.0-70.0) % Seg Neutrophils # (1.8-7.7) K/mm3 PT (12.2-14.9) Sec. INR (0.87-1.13) APTT (24.2-36.6) Sec. Thrombin Time (15.1-19.6) Sec. Sodium 138 (137-145) mmol/L Potassium 4.3 (3.6-5.0) mmol/L Chloride 98.4 (98-107) mmol/L Carbon Dioxide 26 (22-30) mmol/L Anion Gap 18 mmol/L BUN 14 (7-17) mg/dL Creatinine 0.6 (0.6-1.2) mg/dL Estimated GFR > 60 ml/min BUN/Creatinine Ratio 23 % Glucose 124 H (65-100) mg/dL POC Glucose (70-105) mg/dL Calcium 8.7 (8.4-10.2) mg/dL Total Bilirubin 0.30 (0.1-1.2) mg/dL AST 27 (5-40) units/L ALT 32 (7-56) units/L Alkaline Phosphatase 60 (35-129) units/L Total Creatine Kinase 93 (30-135) units/L CK-MB (CK-2) 1.4 (0.0-4.0) ng/mL CK-MB (CK-2) Rel Index 1.5 (0-4) Troponin T < 0.010 (0.00-0.029) ng/mL Total Protein 6.6 (6.3-8.2) g/dL Albumin 3.7 L (3.9-5) g/dL Albumin/Globulin Ratio 1.3 % - Reevaluation(s) Reevaluation #1: 04/16/21 15:03 Differential diagnosis, including but not limited to, stroke, pneumonia, urinary tract infection Assessment and plan: 56-year-old female, who presents with dysarthria within 24 hours of last known well time, with chronic right-sided hemiparesis. The patient is not a TPA candidate as she presents more than 4.5 hours after her last known well time. The patient had an MRI confirmed stroke at this hospital December 2020. Code stroke called overhead by myself CT scan of the brain suggests subacute ischemic stroke, with small quantity of hemorrhagic conversion. Patient awake and alert, and protecting airway at this time. X-ray the chest pending, urinalysis pending, CT angiogram head and neck obtained to evaluate for large vessel occlusion. Contacted neurosurgery on-call, Dr. Duvall. Discussed history, physical, imaging studies, and clinical impression. He advises admission to the ICU, repeat noncontrast CT scan of the brain, and neurochecks every 1 hour. Recommends holding aspirin, and avoiding anticoagulation medically. Recommends checking coagulation parameters. Contacted critical care physician on-call. Dr. Dallas. Discussed history, ph ysical, imaging studies, and neurosurgical recommendations. He will follow in consultation from an intensive care standpoint, and agrees with admission to the ICU. I will also defer to the inpatient team to follow-up on the patient's urinalysis. Discussed plan of care with the patient, and she is agreeable to this plan of care. Discussed history, physical, laboratory studies and imaging studies with acute neurology on care, Dr. Jenkins. He agrees with the plan of care. Hospital physician, Dr. Shant Mcdaniel to admit to IMS/icu He also endorses that he will place orders for repeat imaging in 6 hours and follow-up in a month. 04/16/21 15:07 04/16/21 15:18 - Lab Data Result diagrams: 04/16/21 14:17 04/16/21 14:17 Lab Results 04/16/21 04/16/21 04/16/21 Range/Units 13:43 14:17 14:17 WBC 6.4 (4.5-11.0) K/mm3 RBC 3.86 (3.65-5.03) M/mm3 Hgb 11.2 (10.1-14.3) gm/dl Hct 35.5 (30.3-42.9) % MCV 92 (79-97) fl MCH 29 (28-32) pg MCHC 32 (30-34) % RDW 15.7 H (13.2-15.2) % Plt Count 233 (140-440) K/mm3 Lymph % (Auto) 34.0 (13.4-35.0) % [place] % (Auto) 7.7 H (0.0-7.3) % Eos % (Auto) 0.7 (0.0-4.3) % Baso % (Auto) 0.2 (0.0-1.8) % Lymph # (Auto) 2.2 (1.2-5.4) K/mm3 [place] # (Auto) 0.5 (0.0-0.8) K/mm3 Eos # (Auto) 0.0 (0.0-0.4) K/mm3 Baso # (Auto) 0.0 (0.0-0.1) K/mm3 Seg Neutrophils % 57.4 (40.0-70.0) % Seg Neutrophils # 3.7 (1.8-7.7) K/mm3 PT 12.8 (12.2-14.9) Sec. INR 0.87 (0.87-1.13) APTT 25.7 (24.2-36.6) Sec. Thrombin Time 18.8 (15.1-19.6) Sec. Sodium (137-145) mmol/L Potassium (3.6-5.0) mmol/L Chloride (98-107) mmol/L Carbon Dioxide (22-30) mmol/L Anion Gap mmol/L BUN (7-17) mg/dL Creatinine (0.6-1.2) mg/dL Estimated GFR ml/min BUN/Creatinine Ratio % Glucose (65-100) mg/dL POC Glucose 143 H (70-105) mg/dL Calcium (8.4-10.2) mg/dL Total Bilirubin (0.1-1.2) mg/dL AST (5-40) units/L ALT (7-56) units/L Alkaline Phosphatase (35-129) units/L Total Creatine Kinase (30-135) units/L CK-MB (CK-2) (0.0-4.0) ng/mL CK-MB (CK-2) Rel Index (0-4) Troponin T (0.00-0.029) ng/mL Total Protein (6.3-8.2) g/dL Albumin (3.9-5) g/dL Albumin/Globulin Ratio % 04/16/ Range/Units 14:17 WBC (4.5-11.0) K/mm3 RBC (3.65-5.03) M/mm3 Hgb (10.1-14.3) gm/dl Hct (30.3-42.9) % MCV (79-97) fl MCH (28-32) pg MCHC (30-34) % RDW (13.2-15.2) % Plt Count (140-440) K/mm3 Lymph % (Auto) (13.4-35.0) % [place] % (Auto) (0.0-7.3) % Eos % (Auto) (0.0-4.3) % Baso % (Auto) (0.0-1.8) % Lymph # (Auto) (1.2-5.4) K/mm3 [place] # (Auto) (0.0-0.8) K/mm3 Eos # (Auto) (0.0-0.4) K/mm3 Baso # (Auto) (0.0-0.1) K/mm3 Seg Neutrophils % (40.0-70.0) % Seg Neutrophils # (1.8-7.7) K/mm3 PT (12.2-14.9) Sec. INR (0.87-1.13) APTT (24.2-36.6) Sec. Thrombin Time (15.1-19.6) Sec. Sodium 138 (137-145) mmol/L Potassium 4.3 (3.6-5.0) mmol/L Chloride 98.4 (98-107) mmol/L Carbon Dioxide 26 (22-30) mmol/L Anion Gap 18 mmol/L BUN 14 (7-17) mg/dL Creatinine 0.6 (0.6-1.2) mg/dL Estimated GFR > 60 ml/min BUN/Creatinine Ratio 23 % Glucose 124 H (65-100) mg/dL POC Glucose (70-105) mg/dL Calcium 8.7 (8.4-10.2) mg/dL Total Bilirubin 0.30 (0.1-1.2) mg/dL AST 27 (5-40) units/L ALT 32 (7-56) units/L Alkaline Phosphatase 60 (35-129) units/L Total Creatine Kinase 93 (30-135) units/L CK-MB (CK-2) 1.4 (0.0-4.0) ng/mL CK-MB (CK-2) Rel Index 1.5 (0-4) Troponin T < 0.010 (0.00-0.029) ng/mL Total Protein 6.6 (6.3-8.2) g/dL Albumin 3.7 L (3.9-5) g/dL Albumin/Globulin Ratio 1.3 % - EKG Data -: EKG Interpreted by Ct EKG shows normal: sinus rhythm Rate: normal 04/16/21 14:59 The EKG is interpreted at 14: 53 Sinus rhythm, 93 bpm. Normal axis. Normal P wave axis. First-degree AV block, NC interval 218 ms. Motion artifact, poor R wave progression. Low voltage in the lateral leads. This is an abnormal EKG. This is not a STEMI - Radiology Data Radiology results: report reviewed, image reviewed CT head/brain wo con INDICATION / CLINICAL INFORMATION: 56 years Female; Stroke symptoms CODE STROKE CALL ER MAIN AT [id number]. TECHNIQUE: Routine CT head without contrast. All CT scans at this location are performed using CT dose reduction for ALARA by means of automated exposure control. COMPARISON: The study is compared to previous CT of 01/18/2021 and MRI of 01/19/2021.. FINDINGS: BRAIN / INTRACRANIAL CONTENTS: There has been interval development of a focus of increased attenuation within the right frontoparietal region measuring 1.4 cm in greatest AP dimension. This finding would be concerning for developing a hemorrhagic infarct from 01/18/2021. There appears be milder surrounding edema. Continued follow-up would be recommended to ensure resolution of the hemorrhage and exclude underlying lesion. There have been interval evolutionary changes of the infarct involving the posterior limb of the left internal capsule from 01/18/2021 with developing encephalomalacia. There is otherwise extensive the cerebral white matter disease compatible with microvascular angiopathy at. There is mild cerebral atrophy with associated mild prominence of the ventricular system. ORBITS: No significant abnormality of visualized orbits. SINUSES / MASTOIDS: No significant abnormality in the visualized paranasal sinuses or mastoid air cells. CRANIOCERVICAL JUNCTION: No significant abnormality. ADDITIONAL FINDINGS: None. IMPRESSION: 1. The findings are indicative of developing a 1.4 cm thoracic infarct along the right frontoparietal region as a detailed above. 2. There has been interval evolutionary changes of the infarct involving the posterior limb of the left internal capsule with developing encephalomalacia from 01/18/2021. The study was specified as code stroke and called emergently to Dr. Rubi Vilchis the ER at 1:29 PM Central standard time. Signer Name: Delfino Morales MD Signed: 04/16/2021 1:31 PM Workstation Name: [id number] MRI BRAIN 01/20/2021 INDICATION / CLINICAL INFORMATION: Right-sided weakness. TECHNIQUE: Multiplanar, multisequence MR images of the brain were obtained. COMPARISON: None available. FINDINGS: BRAIN / INTRACRANIAL CONTENTS: Unenhanced MR images of the brain were obtained. There is a elongated oval shaped focus of restricted diffusion associated with the posterior limb of the left internal capsule, associated with decreased ADC signal. This is consistent with acute or recent subcortical ischemic injury. There are also 2 punctate foci of restricted diffusion in the high right and left parietal subcortical white matter, also consistent with acute ischemic injury and small vessel distribution. There is no evidence of cortical acute ischemic injury. Ventricles and sulci are slightly prominent in size, consistent with underlying cerebral atrophy, probably central. Moderate chronic white matter T2 weighted hyperintensities are present in the periventricular and deep white matter of cerebral hemispheres. There is no evidence of hemorrhage or mass. There are no abnormal extra-axial fluid collections. EXTRACRANIAL: Unremarkable CRANIOCERVICAL JUNCTION: No significant abnormality. VASCULAR FLOW-VOIDS: No significant abnormality. IMPRESSION: Focal areas of recent or acute ischemic injury in the posterior limb of the left internal capsule, and punctate foci in subcortical parietal white matter bilaterally. Signer Name: Bryan Eddy MD Signed: 01/20/2021 10:23 AM Workstation Name: [id number] CTA HEAD WITH CONTRAST HISTORY: Stroke COMPARISON: None. TECHNIQUE: Routine non-contrast CT Head, CTA of the head and post-contrast CT Head are performed. 3-D/MIP reformats postprocessed. All CT scans at this location are performed using CT dose reduction for ALARA by means of automated exposure control CONTRAST: 100 ml of Omnipaque 350 FINDINGS: CTA Head: Intracranial vertebral arteries: Right vertebral artery is the dominant artery; left vertebral artery is smaller but patent; atheromatous changes in the left vertebral artery as it enters the dura Basilar artery: No significant abnormality. Posterior cerebral arteries: No significant abnormality. Right posterior communicating artery contributes to right posterior cerebral artery Intracranial internal carotid arteries: Patent from skull base to terminus; vascular calcification in the cavernous segments bilaterally Anterior cerebral arteries: No significant abnormality. Middle cerebral arteries: No significant abnormality. Dural venous sinuses:Not optimally opacified. No significant abnormality. Additional findings: None. IMPRESSION: 1. No significant abnormality. Signer Name: Malika Romero MD Signed: 01/19/2021 3:22 PM Workstation Name: [id number] MRA HEAD 01/20/2021 INDICATION / CLINICAL INFORMATION: cva, RT SIDED WEAKNESS, . TECHNIQUE: Routine MRA of the head is performed. 3-D/MIP reformats postprocessed. COMPARISON: None available. FINDINGS: MRA HEAD: Intracranial internal carotid arteries: No significant abnormality. Anterior cerebral arteries: No significant abnormality. Middle cerebral arteries: No significant abnormality. Intracranial vertebral arteries: No significant abnormality. Basilar artery: No significant abnormality. Posterior cerebral arteries: No significant abnormality. IMPRESSION: No significant abnormality. Signer Name: Bryan dEdy MD Signed: 01/20/2021 10:28 AM Workstation Name: [id number] CTA NECK WITH CONTRAST HISTORY: Stroke COMPARISON: None. TECHNIQUE: Routine CTA of the neck was performed. 3-D/MIP reformats were postprocessed. Percentage stenosis is determined by direct quantitative measurements of diseased internal carotid artery diameter compared with normal distal internal carotid artery reference segments or by criteria similar to NASCET where applicable.All CT scans at this location are performed using CT dose reduction for ALARA by means of automated exposure control CONTRAST: 100 ml of Omnipaque 350 FINDINGS: Aortic arch: No significant abnormality. Cervical vertebral arteries: Normal right vertebral artery origin up to basilar formation; normal left vertebral artery from origin up to extraspinal segment; atherosclerotic changes in the intradural segment of left vertebral artery Common carotid arteries: No significant abnormality. Carotid bifurcations: Right carotid bifurcation: Calcified atheromatous sclerotic plaque with less than 50% stenoses at the origin of right internal carotid artery; 4 mm thick calcification posteriorly in the carotid bifurcation Left carotid bifurcation: Calcified atheromatous plaque with less than 30% stenoses in the proximal left internal carotid artery; Cervical internal carotid arteries: No significant abnormality. Additional findings: None. IMPRESSION: Opacified atheromatous plaques in both carotid bifurcations with less than 50% stenoses on the right side and less than 40% stenoses on the left side Signer Name: Malika Romero MD Signed: 01/19/2021 3:16 PM Workstation Name: [id number] CT angio head INDICATION / CLINICAL INFORMATION: 56 years Female; Stroke symptoms CODE STROKE CALL ER MAIN AT 8199 OMNI 350 100 ML stroke sx. TECHNIQUE: Thin cut axial images obtained through the head during IV bolus contrast administration. Sagittal, coronal, and 3 plane MIP reconstructions performed by the technologist. NASCET type criteria used evaluate stenoses. Automated exposure control utilized for radiation reduction purposes. COMPARISON: The study is compared to the previous CTA of 01/19/2021. FINDINGS: INTERNAL CAROTID ARTERIES: There is extensive atherosclerotic calcification involving distal internal carotid arteries bilaterally with mild narrowing of the cavernous to cl inoid segments at. The findings correlate with the previous exam. 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 There is no significant focal stenosis involving the basilar artery. CEREBRAL ARTERIES: There is developmental origin of the right SPONGE FISHERMAN at. There is no clear CTA evidence of significant developing stenosis involving proximal cerebral arteries or adjacent segments. On the earlier CT head, a focus of increased attenuation was seen at within the right frontoparietal region concerning for evolving hemorrhagic infarct at. There is s uggestion of some collateral flow and decreased peripheral vessels within this region. ANEURYSM: None identified. ADDITIONAL FINDINGS: The dural venous sinuses opacify with contrast. IMPRESSION: The findings correlate with the earlier CT head demonstrating increased attenuation along the right fr ontoparietal junction concerning for evolving hemorrhagic infarct as detailed above.. There is no clear CTA evidence of developing more proximal large vessel occlusion. There is continued atherosclerotic calcification involving distal internal carotid arteries with mild stenosis bilaterally. Signer Name: Delfino Morales MD Signed: 04/16/2021 1:55 PM Workstation Name: [id number] CT angio neck INDICATION / CLINICAL INFORMATION: 56 years Female; Stroke symptoms CODE STROKE CALL ER MAIN AT 8199 OMNI 350 100 ML stroke sx. TECHNIQUE: Thin cut axial images obtained through the head during IV bolus contrast administration. Sagittal, coronal, and 3 plane MIP reconstructions performed by the technologist. NASCET type criteria used evaluate stenoses. All CT scans at this location are performed using CT dose reduction for ALARA by means of automated exposure control. COMPARISON: None available. FINDINGS: CAROTID ARTERIES: There is atherosclerotic calcification involving proximal right carotid bifurcation and proximal right ICA with mild, approximately 30% stenosis at the origin. There is mild calcified plaque involving proximal left ICA without significant stenosis by NASCET to criteria. VERTEBRAL ARTERIES: There is notable beam hardening artifact resulting from the patient's body habitus at. However, there is developmental hypoplasia of the vertebral arteries, particularly on the left. There is no clear evidence of significant focal stenosis. ARCH: There is developmental common origin of the brachiocephalic and left common carotid arteries. There is no significant stenosis of the arch vessels. ADDITIONAL FINDINGS: Remainder of the surrounding soft tissues are grossly normal. IMPRESSION: There is atherosclerotic calcification involving right carotid bifurcation and proximal right ICA with approximately 30% stenosis by NASCET criteria. There is continued mild calcification involving the proximal left ICA without significant stenosis. Signer Name: Delfino Morales MD Signed: 04/16/2021 1:46 PM Workstation Name: [id number] - Core Measures Measure Exclusions: not indicated - Thrombolytic Inclusion/Exclusion Thrombolytic Exclusion Criteria: Symptom Onset > 3 Hours Thrombolytic Contraindications: Stroke in Past 3 Months, GI or Other Bleeding Critical Care Time: Yes Critical care time in (mins) excluding proc time.: 45 Critical care attestation.: If time is entered above; I have spent that time in minutes in the direct care of this critically ill patient, excluding procedure time. ED Disposition Clinical Impression: Obesity, morbid, BMI 40.0-49.9, Acute ischemic stroke, Intracranial hemorrhage Disposition: 09 ADMITTED INPATIENT Is pt being admited?: Yes Does the pt Need Aspirin: No Condition: Critical Referrals: [facility] [Other] - 3-5 Days
[2021-04-16 14:27] LABS: Basophils % (Auto) 0.2 % (0.0-1.8); Eosinophils % (Auto) 0.7 % (0.0-4.3); Hematocrit 35.5 % (30.3-42.9); Hemoglobin 11.2 gm/dl (10.1-14.3); Lymphocytes # (Auto) 2.2 K/mm3 (1.2-5.4); Mean Corpuscular HGB Conc 32 % (30-34); Mean Corpuscular Volume 92 fl (79-97); Monocytes # (Auto) 0.5 K/mm3 (0.0-0.8); Monocytes % (Auto) 7.7 % (0.0-7.3); Platelet Count 233 K/mm3 (140-440); Red Blood Count 3.86 M/mm3 (3.65-5.03); Red Cell Distribution Width 15.7 % (13.2-15.2)
--- NOTE | 2021-04-16 14:36 | Cat Scan Report ---
CT head/brain wo con INDICATION / CLINICAL INFORMATION: 56 years Female; Stroke symptoms CODE STROKE CALL ER MAIN AT 8199. TECHNIQUE: Routine CT head without contrast. All CT scans at this location are performed using CT dos e reduction for ALARA by means of automated exposure control. COMPARISON: The study is compared to previous CT of 01/18/2021 and MRI of 01/19/2021.. FINDINGS: BRAIN / INTRACRANIAL CONTENTS: There has been interval development of a focus of increased attenuatio n within the right frontoparietal region measuring 1.4 cm in greatest AP dimension. This finding woul d be concerning for developing a hemorrhagic infarct from 01/18/2021. There appears be milder surround ing edema. Continued follow-up would be recommended to ensure resolution of the hemorrhage and exclud e underlying lesion. There have been interval evolutionary changes of the infarct involving the posterior limb of the left internal capsule from 01/18/2021 with developing encephalomalacia. There is otherwise extensive the c erebral white matter disease compatible with microvascular angiopathy at. There is mild cerebral atro phy with associated mild prominence of the ventricular system. ORBITS: No significant abnormality of visualized orbits. SINUSES / MASTOIDS: No significant abnormality in the visualized paranasal sinuses or mastoid air nandini ls. CRANIOCERVICAL JUNCTION: No significant abnormality. ADDITIONAL FINDINGS: None. IMPRESSION: 1. The findings are indicative of developing a 1.4 cm thoracic infarct along the right frontoparietal region as a detailed above. 2. There has been interval evolutionary changes of the infarct involving the posterior limb of the le ft internal capsule with developing encephalomalacia from 01/18/2021. The study was specified as code stroke and called emergently to Dr. Rubi Vilchis the ER at 1:29 PM Central standard time. Signer Name: Delfino Morales MD Signed: 04/16/2021 2:31 PM Workstation Name: [id number]
[2021-04-16 14:42] LABS: INR 0.87 (0.87-1.13)
[2021-04-16 14:43] LABS: Partial Thromboplastin Time 25.7 Sec. (24.2-36.6); Thrombin Time 18.8 Sec. (15.1-19.6)
--- NOTE | 2021-04-16 14:50 | Cat Scan Report ---
CT angio neck INDICATION / CLINICAL INFORMATION: 56 years Female; Stroke symptoms CODE STROKE CALL ER MAIN AT 8199 OMNI 350 100 ML stroke sx. TECHNIQUE: Thin cut axial images obtained through the head during IV bolus contrast administration. S agittal, coronal, and 3 plane MIP reconstructions performed by the technologist. NASCET type criteria used evaluate stenoses. All CT scans at this location are performed using CT dose reduction for ALAR A by means of automated exposure control. COMPARISON: None available. FINDINGS: CAROTID ARTERIES: There is atherosclerotic calcification involving proximal right carotid bifurcation and proximal right ICA with mild, approximately 30% stenosis at the origin. There is mild calcified plaque involving proximal left ICA without significant stenosis by NASCET to criteria. VERTEBRAL ARTERIES: There is notable beam hardening artifact resulting from the patient's body habitu s at. However, there is developmental hypoplasia of the vertebral arteries, particularly on the left. There is no clear evidence of significant focal stenosis. ARCH: There is developmental common origin of the brachiocephalic and left common carotid arteries. T here is no significant stenosis of the arch vessels. ADDITIONAL FINDINGS: Remainder of the surrounding soft tissues are grossly normal. IMPRESSION: There is atherosclerotic calcification involving right carotid bifurcation and proximal right ICA wit h approximately 30% stenosis by NASCET criteria. There is continued mild calcification involving the proximal left ICA without significant stenosis. Signer Name: Delfino Morales MD Signed: 04/16/2021 2:46 PM Workstation Name: [id number]
[2021-04-16 14:55] LABS: Creatine Kinase MB 1.4 ng/mL (0.0-4.0)
--- NOTE | 2021-04-16 14:55 | XRay Report ---
CHEST 1 VIEW 04/16/2021 1:37 PM INDICATION / CLINICAL INFORMATION: cva. COMPARISON: 01/18/2021 FINDINGS: SUPPORT DEVICES: None. HEART / MEDIASTINUM: No significant abnormality. LUNGS / PLEURA: No significant pulmonary or pleural abnormality. No pneumothorax. ADDITIONAL FINDINGS: No significant additional findings. IMPRESSION: 1. No acute findings. Signer Name: Benjamin Land MD Signed: 04/16/2021 2:50 PM Workstation Name: [id number]
[2021-04-16 14:57] LABS: Alanine Aminotransferase 32 units/L (7-56); Albumin 3.7 g/dL (3.9-5); Blood Urea Nitrogen 14 mg/dL (7-17); Calcium 8.7 mg/dL (8.4-10.2); Hemolysis Index 2
[2021-04-16 15:01] LABS: BUN/Creatinine Ratio 23
--- NOTE | 2021-04-16 15:04 | Cat Scan Report ---
CT angio head INDICATION / CLINICAL INFORMATION: 56 years Female; Stroke symptoms CODE STROKE CALL ER MAIN AT 8199 OMNI 350 100 ML stroke sx. TECHNIQUE: Thin cut axial images obtained through the head during IV bolus contrast administration. S agittal, coronal, and 3 plane MIP reconstructions performed by the technologist. NASCET type criteria used evaluate stenoses. Automated exposure control utilized for radiation reduction purposes. COMPARISON: The study is compared to the previous CTA of 01/19/2021. FINDINGS: INTERNAL CAROTID ARTERIES: There is extensive atherosclerotic calcification involving distal internal carotid arteries bilaterally with mild narrowing of the cavernous to clinoid segments at. The findin gs correlate with the previous exam. 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 There is no significant focal stenosis involving the basilar artery. CEREBRAL ARTERIES: There is developmental origin of the right INTAKE SPECIALIST at. There is no clear CTA saleem dence of significant developing stenosis involving proximal cerebral arteries or adjacent segments. On the earlier CT head, a focus of increased attenuation was seen at within the right frontoparietal region concerning for evolving hemorrhagic infarct at. There is suggestion of some collateral flow an d decreased peripheral vessels within this region. ANEURYSM: None identified. ADDITIONAL FINDINGS: The dural venous sinuses opacify with contrast. IMPRESSION: The findings correlate with the earlier CT head demonstrating increased attenuation along the right f rontoparietal junction concerning for evolving hemorrhagic infarct as detailed above.. There is no clear CTA evidence of developing more proximal large vessel occlusion. There is continued atherosclerotic calcification involving distal internal carotid arteries with mild stenosis chelo aguero Signer Name: Delfino Morales MD Signed: 04/16/2021 2:55 PM Workstation Name: [id number]
--- NOTE | 2021-04-16 15:17 | Consultation ---
Medications and Allergies Allergies Allergy/AdvReac Type Severity Reaction Status Date / Time acetaminophen [From Lortab] AdvReac Unknown Unverified 11/25/16 09:46 hydrocodone bitartrate AdvReac Unknown Unverified 11/25/16 09:46 [From Lortab] Home Medications Medication Instructions Recorded Confirmed Last Taken Type Insulin Aspart (Nf) [NovoLOG 100 0 unit SQ AC 10/09/13 01/21/21 01/18/21 History UNITS/ML VIAL] Insulin Detemir [Levemir Flexpen] 50 unit SQ BID 10/09/13 01/21/21 01/18/21 History Metformin HCl [Glucophage] 1,000 mg PO BID 10/09/13 01/21/21 01/18/21 History Pioglitazone HCl [Actos] 15 mg PO QDAY 10/09/13 01/21/21 01/18/21 History Valsartan/Hydrochlorothiazide 1 each PO QDAY 10/09/13 01/21/21 01/18/21 History [Valsartan-Hctz 320-25 mg] Diphenoxylate HCl/Atropine 1 tab-cap PO Q6HR PRN #30 tablet 10/10/13 01/21/21 01/18/21 Rx [Lomotil 2.5-0.025 mg Tablet] Meclizine [Antivert] 25 mg PO Q8H PRN #30 tablet 10/10/13 01/21/21 01/14/21 Rx Aspirin 325 mg PO QDAY #30 tablet 01/21/21 Unknown Rx AtorvaSTATin [Lipitor] 40 mg PO QHS #30 tablet 01/21/21 Unknown Rx amLODIPine 5 mg PO QDAY #30 tablet 01/21/21 Unknown Rx Physical Examination - Vital Signs Vital Signs: Vital Signs Pulse Resp BP Pulse Ox 99 H 16 146/60 98 04/16/21 13:32 04/16/21 13:32 04/16/21 13:32 04/16/21 13:32 Results - Laboratory Findings CBC and BMP: 04/16/21 14:17 04/16/21 14:17 Abnormal Lab Findings: Abnormal Labs 04/16/21 04/16/21 04/16/21 13:43 14:17 14:17 RDW 15.7 H Turner % (Auto) 7.7 H Glucose 124 H POC Glucose 143 H Albumin 3.7 L Assessment and Plan [facility] Consult Note # Demographics Consult Type: Acute Stroke Level 1 (0-4.5 hrs) Patient Location: Emergency Room First Name: Lidia Last Name: Guru Date of : 1965 Age: 56 Gender: Female Facility: [facility] Time of Initial Page (Eastern Time): 04/16/2021, 13:56 Time of Return Call (Eastern Time): 04/16/2021, 13:57 # HPI History: 56 yo woman with history of previous stroke with residual right-sided weakness, DM, hypertension with slurred speech yesterday. CT head with hemorrhagic tranformation of recent subacute stroke. # Assessment Impression: Ischemic Stroke (Subacute) right frontal perietal hemorrhagic tranformation of stroke # Plan Thrombolytic/Intervention: NOT IV Thrombolysis or IA Intervention candidate Thrombolytic Exclusion (< 3 hour window): ICH Target Blood Pressure: SBP < 160 Imaging: (urgency: STAT): Repeat head CT in 6 hours or sooner for any worsening Imaging: (urgency: routine): MRI Brain without contrast DVT Prophylaxis: SCD contraindication Other: I have discussed my recommendations with the referring provider Additional Recommendations: Admit to ICU Check coags and reverse any coagulopathies Disposition: admit
[2021-04-16 19:13] LABS: Bacteria,Urine 2+ /HPF (Negative); Bilirubin,Urine NEG (Negative); Blood,Urine MOD (Negative); Color,Urine Yellow (Yellow); Mucus,Urine FEW /HPF; Protein,Urine <15 mg/dL mg/dL (Negative)
--- NOTE | 2021-04-16 22:56 | History and Physical Report ---
History of Present Illness Date of examination: 04/16/21 Date of admission: 04/16/21 15:09 Chief complaint: Slurred speech since last night History of present illness: 56-year-old female with history of hypertension, insulin-dependent diabetes and cerebrovascular accident in December with residual right-sided hemiplegia comes in for slurred speech since last night. Patient was diagnosed with a acute CVA in December 2020 confirmed by MRI. Patient is says that she has slurred speech since last night which may be a new cerebrovascular accident. She has chronic right- sided weakness since last cerebrovascular accident in December. Patient is in rehab. Patient able to answer questions appropriately. Alert and oriented. Gives a good history. - Past Medical History --Previous Medical History?: Yes --Hypertension: Yes --Diabetes: Yes --Deep Vein Thrombosis: Yes --Pulmonary Embolism: Yes --Additional medical history: High cholesterol - Surgical History Past Surgical History?: Yes Additional Surgical History: Lining of uterus removed - Social History Smoking Status: Never Smoker Substance Use Type: None Review of Systems ROS: Stated complaint: SLURRED SPEECH Other details as noted in HPI Constitutional: denies: fever Eyes: denies: eye discharge ENT: denies: epistaxis Respiratory: denies: cough Cardiovascular: denies: chest pain Gastrointestinal: denies: abdominal pain Genitourinary: denies: dysuria Neurological: weakness (Chronic weakness), other (New onset dysarthria) Medications and Allergies Allergies Allergy/AdvReac Type Severity Reaction Status Date / Time acetaminophen [From Lortab] AdvReac Unknown Unverified 11/25/16 09:46 hydrocodone bitartrate AdvReac Unknown Unverified 11/25/16 09:46 [From Lortab] Home Medications Medication Instructions Recorded Confirmed Last Taken Type Insulin Aspart (Nf) [NovoLOG 100 0 unit SQ AC 10/09/13 01/21/21 01/18/21 History UNITS/ML VIAL] Insulin Detemir [Levemir Flexpen] 50 unit SQ BID 10/09/13 01/21/21 01/18/21 History Metformin HCl [Glucophage] 1,000 mg PO BID 10/09/13 01/21/21 01/18/21 History Pioglitazone HCl [Actos] 15 mg PO QDAY 10/09/13 01/21/21 01/18/21 History Valsartan/Hydrochlorothiazide 1 each PO QDAY 10/09/13 01/21/21 01/18/21 History [Valsartan-Hctz 320-25 mg] Diphenoxylate HCl/Atropine 1 tab-cap PO Q6HR PRN #30 tablet 10/10/13 01/21/21 01/18/21 Rx [Lomotil 2.5-0.025 mg Tablet] Meclizine [Antivert] 25 mg PO Q8H PRN #30 tablet 10/10/13 01/21/21 01/14/21 Rx Aspirin 325 mg PO QDAY #30 tablet 01/21/21 Unknown Rx AtorvaSTATin [Lipitor] 40 mg PO QHS #30 tablet 01/21/21 Unknown Rx amLODIPine 5 mg PO QDAY #30 tablet 01/21/21 Unknown Rx Exam - Constitutional Vitals: Temp Pulse Resp BP Pulse Ox 98.5 F 85 16 116/71 97 04/16/21 20:45 04/16/21 21:01 04/16/21 18:45 04/16/21 18:45 04/16/21 18:45 General appearance: Present: no acute distress, well-nourished - EENT Eyes: Present: PERRL ENT: hearing intact, clear oral mucosa - Neck Neck: Present: supple, normal ROM - Respiratory Respiratory effort: normal Respiratory: bilateral: CTA - Cardiovascular Heart rate: 78 Rhythm: regular Heart Sounds: Present: S1 & S2. Absent: rub, click - Extremities Extremities: no ischemia, pulses intact, pulses symmetrical, No edema Peripheral Pulses: within normal limits - Abdominal General gastrointestinal: Present: soft, non-tender, non-distended, normal bowel sounds Female genitourinary: Present: normal - Rectal Rectal Exam: deferred - Integumentary Integumentary: Present: clear, warm, dry - Musculoskeletal Musculoskeletal: right sided weakness - Psychiatric Psychiatric: appropriate mood/affect, intact judgment & insight - Neurologic Neurologic: CNII-XII intact, focal deficits (Right-sided hemiplegia), moves all extremities, other (Dysarthria) HEART Score - HEART Score Troponin: Troponin T < 0.010 ng/mL (0.00-0.029) 04/16/21 14:17 Results - Labs CBC & Chem 7: 04/17/21 05:54 04/17/21 05:54 Labs: Laboratory Last Values WBC 6.4 K/mm3 (4.5-11.0) 04/16/21 14:17 RBC 3.86 M/mm3 (3.65-5.03) 04/16/21 14:17 Hgb 11.2 gm/dl (10.1-14.3) 04/16/21 14:17 Hct 35.5 % (30.3-42.9) 04/16/21 14:17 MCV 92 fl (79-97) 04/16/21 14:17 MCH 29 pg (28-32) 04/16/21 14:17 MCHC 32 % (30-34) 04/16/21 14:17 RDW 15.7 % (13.2-15.2) H 04/16/21 14:17 Plt Count 233 K/mm3 (140-440) 04/16/21 14:17 Lymph % (Auto) 34.0 % (13.4-35.0) 04/16/21 14:17 Newberry % (Auto) 7.7 % (0.0-7.3) H 04/16/21 14:17 Eos % (Auto) 0.7 % (0.0-4.3) 04/16/21 14:17 Baso % (Auto) 0.2 % (0.0-1.8) 04/16/21 14:17 Lymph # (Auto) 2.2 K/mm3 (1.2-5.4) 04/16/21 14:17 Newberry # (Auto) 0.5 K/mm3 (0.0-0.8) 04/16/21 14:17 Eos # (Auto) 0.0 K/mm3 (0.0-0.4) 04/16/21 14:17 Baso # (Auto) 0.0 K/mm3 (0.0-0.1) 04/16/21 14:17 Seg Neutrophils % 57.4 % (40.0-70.0) 04/16/21 14:17 Seg Neutrophils # 3.7 K/mm3 (1.8-7.7) 04/16/21 14:17 PT 12.8 Sec. (12.2-14.9) 04/16/21 14:17 INR 0.87 (0.87-1.13) 04/16/21 14:17 APTT 25.7 Sec. (24.2-36.6) 04/16/21 14:17 Thrombin Time 18.8 Sec. (15.1-19.6) 04/16/21 14:17 Sodium 138 mmol/L (137-145) 04/16/21 14:17 Potassium 4.3 mmol/L (3.6-5.0) 04/16/21 14:17 Chloride 98.4 mmol/L (98-107) 04/16/21 14:17 Carbon Dioxide 26 mmol/L (22-30) 04/16/21 14:17 Anion Gap 18 mmol/L 04/16/21 14:17 BUN 14 mg/dL (7-17) 04/16/21 14:17 Creatinine 0.6 mg/dL (0.6-1.2) 04/16/21 14:17 Estimated GFR > 60 ml/min 04/16/21 14:17 BUN/Creatinine Ratio 23 % 04/16/21 14:17 Glucose 124 mg/dL (65-100) H 04/16/21 14:17 POC Glucose 113 mg/dL (70-105) H 04/16/21 20:47 Calcium 8.7 mg/dL (8.4-10.2) 04/16/21 14:17 Total Bilirubin 0.30 mg/dL (0.1-1.2) 04/16/21 14:17 AST 27 units/L (5-40) 04/16/21 14:17 ALT 32 units/L (7-56) 04/16/21 14:17 Alkaline Phosphatase 60 units/L (35-129) 04/16/21 14:17 Total Creatine Kinase 93 units/L (30-135) 04/16/21 14:17 CK-MB (CK-2) 1.4 ng/mL (0.0-4.0) 04/16/21 14:17 CK-MB (CK-2) Rel Index 1.5 (0-4) 04/16/21 14:17 Troponin T < 0.010 ng/mL (0.00-0.029) 04/16/21 14:17 Total Protein 6.6 g/dL (6.3-8.2) 04/16/21 14:17 Albumin 3.7 g/dL (3.9-5) L 04/16/21 14:17 Albumin/Globulin Ratio 1.3 % 04/16/21 14:17 Urine Color Yellow (Yellow) 04/16/21 18:53 Urine Turbidity Slightly-cloudy (Clear) 04/16/21 18:53 Urine pH 6.0 (5.0-7.0) 04/16/21 18:53 Ur Specific Energy 1.036 (1.003-1.030) H 04/16/21 18:53 Urine Protein <15 mg/dl mg/dL (Negative) 04/16/21 18:53 Urine Glucose (UA) Neg mg/dL (Negative) 04/16/21 18:53 Urine Ketones Neg mg/dL (Negative) 04/16/21 18:53 Urine Blood Mod (Negative) 04/16/21 18:53 Urine Nitrite Neg (Negative) 04/16/21 18:53 Urine Bilirubin Neg (Negative) 04/16/21 18:53 Urine Urobilinogen 2.0 mg/dL (<2.0) 04/16/21 18:53 Ur Leukocyte Esterase Lg (Negative) 04/16/21 18:53 Urine WBC (Auto) 44.0 /HPF (0.0-6.0) H 04/16/21 18:53 Urine RBC (Auto) 10.0 /HPF (0.0-6.0) 04/16/21 18:53 U Epithel Cells (Auto) 2.0 /HPF (0-13.0) 04/16/21 18:53 Urine Bacteria (Auto) 2+ /HPF (Negative) 04/16/21 18:53 Urine Mucus Few /HPF 04/16/21 18:53 Urine Yeast (Budding) 1+ /HPF 04/16/21 18:53 Short CBC 04/16/21 04/17/21 Range/Units 14:17 05:54 WBC 6.4 6.4 (4.5-11.0) K/mm3 Hgb 11.2 11.3 (10.1-14.3) gm/dl Hct 35.5 35.1 (30.3-42.9) % Plt Count 233 244 (140-440) K/mm3 BMP 04/16/21 04/17/21 14:17 05:54 Sodium 138 142 Potassium 4.3 3.8 Chloride 98.4 99.3 Carbon Dioxide 26 30 BUN 14 11 Creatinine 0.6 0.6 Glucose 124 H 112 H Calcium 8.7 9.0 Cardiac Enzymes 04/16/21 Range/Units 14:17 Total Creatine Kinase 93 (30-135) units/L CK-MB (CK-2) 1.4 (0.0-4.0) ng/mL Troponin T < 0.010 (0.00-0.029) ng/mL Liver Function 04/16/21 04/17/21 Range/Units 14:17 05:54 Total Bilirubin 0.30 0.50 (0.1-1.2) mg/dL AST 27 22 (5-40) units/L ALT 32 31 (7-56) units/L Alkaline Phosphatase 60 59 (35-129) units/L Albumin 3.7 L 3.8 L (3.9-5) g/dL Urine 04/16/21 Range/Units 18:53 Urine Color Yellow (Yellow) Urine pH 6.0 (5.0-7.0) Ur Specific Energy 1.036 H (1.003-1.030) Urine Protein <15 mg/dl (Negative) mg/dL Urine Glucose (UA) Neg (Negative) mg/dL - Imaging and Cardiology Imaging and Cardiology: Head CT The findings are indicative of developing 1.4 infarct along the right frontoparietal region. There has been interval evolutionary changes in the infarct involving the posterior limb of the left internal capsule with developing encephalomalacia from 01/18/2021. There is otherwise extensive cerebral white matter disease compatible with microvascular angiopathy. Suspicion for hemorrhagic conversion. Head CTA The findings correlate with the earlier CT head demonstrating increased attenuation along the right frontoparietal junction concerning for evolving hemorrhagic infarct as detailed above. Neck CTA There is atherosclerotic calcification involving the right carotid bifurcation and proximal right ICA with approximately 30% stenosis by an NASCET criteria Hernandez/IV: Voiding Method External Female Catheter Assessment and Plan Assessment and plan: Critical care statement The high probability OF a clinically significant sudden or life-threatening deterioration of the cardiorespiratory system and endocrine system required my full and direct attention, intervention and postoperative management. The aggregate critical care time was 40 minutes. The time is in addition to time spent performing reported procedures but includes the followin: Data review and interpretation 2: Patient assessment and monitoring of vital signs 3: Documentation 4:: Medication orders and management Advance Directives: Yes (Full code) VTE prophylaxis?: Chemical Plan of care discussed with patient/family: Yes - Patient Problems (1) Acute CVA (cerebrovascular accident) Current Visit: Yes Status: Acute Plan to address problem: New left-sided infarct in the internal capsule and frontoparietal region with hemorrhagic conversion Because of the hemorrhagic conversion patient is being admitted to ICU for observation Patient is otherwise stable except for slurred speech Neurosurgery consult and neurology consult requested Global Supply Chain Vice President consult requested Stroke protocol initiated (2) IDDM (insulin dependent diabetes mellitus) Current Visit: Yes Status: Chronic Plan to address problem: Insulin coverage for now Check A1c (3) Hyperlipidemia Current Visit: No Status: Chronic (4) Hypertension Current Visit: No Status: Suspected Qualifiers: Hypertension type: primary hypertension Qualified Code(s): I10 - Essential (primary) hypertension Plan to address problem: Continue antihypertensives and adjust medications as necessary (5) Hyperlipidemia Current Visit: Yes Status: Chronic Qualifiers: Hyperlipidemia type: mixed hyperlipidemia Qualified Code(s): E78.2 - Mixed hyperlipidemia Plan to address problem: Continue on high intensity statins (6) DVT prophylaxis Current Visit: Yes Status: Acute Plan to address problem: On SCDs and GI prophylaxis No heparin because of hemorrhagic conversion (7) Discharge planning issues Current Visit: Yes Status: Acute Plan to address problem: Patient will be transferred to regular telemetry with stable for next 16 to 24 hours
[2021-04-16] MEDS ORDERED: MECLIZINE 25 MG TAB PO PRN (22:57)
[2021-04-16] MEDS ORDERED: MORPHINE 2 MG/1 ML INJ IV PRN (23:04)
[2021-04-16] MEDS ORDERED: HYDROmorphone 1 MG/1 ML INJ IV PRN (23:04)
[2021-04-16] MEDS ORDERED: ACETAMINOPHEN 325 MG TAB PO PRN (23:04)
[2021-04-16] MEDS ORDERED: ONDANSETRON 4 MG/2 ML INJ IV PRN (23:04)
[2021-04-16] MEDS ORDERED: METOCLOPRAMIDE 10 MG/2 ML INJ IV PRN (23:04)
--- NOTE | 2021-04-16 23:16 | Cat Scan Report ---
CT head without contrast INDICATION : Intracranial hemorrhage.. TECHNIQUE: Axial imaging performed from the skull apex through the skull base without the use of con trast. All CT scans at this location are performed using CT dose reduction for ALARA by means of aut omated exposure control. COMPARISON: Earlier the same day. FINDINGS: Parenchyma: Hemorrhagic infarction at the right frontotemporal region remains and measures slightly l arger in size (1.7 versus 1.4 cm). There is no significant mass effect or new focus of hemorrhage. Ch ronic changes of atrophy and small vessel ischemia remain. Ventricles: Ventricles are normal in size and appear symmetric. Soft tissues: Soft tissues including the orbits appear normal. Bones: No acute osseous abnormality. Sinuses: Sinuses and mastoid air cells are clear. IMPRESSION: Persistent hemorrhagic infarct right frontotemporal region with slight enlargement in siz e. No new hemorrhage or significant mass effect. Signer Name: Kam Paniagua MD Signed: 04/16/2021 11:12 PM Workstation Name: [id number]
[2021-04-17] MEDS: FAMOTIDINE 20 MG/2 ML INJ IV SCH ×2 (00:43→10:40)
[2021-04-17 06:23] LABS: Basophils % (Auto) 0.2 % (0.0-1.8); Eosinophils % (Auto) 0.6 % (0.0-4.3); Hematocrit 35.1 % (30.3-42.9); Hemoglobin 11.3 gm/dl (10.1-14.3); Lymphocytes # (Auto) 2.8 K/mm3 (1.2-5.4); Lymphocytes % (Auto) 44.6 % (13.4-35.0); Mean Corpuscular HGB Conc 32 % (30-34); Mean Corpuscular Volume 91 fl (79-97); Monocytes # (Auto) 0.5 K/mm3 (0.0-0.8); Monocytes % (Auto) 7.9 % (0.0-7.3); Platelet Count 244 K/mm3 (140-440); Red Blood Count 3.84 M/mm3 (3.65-5.03); Red Cell Distribution Width 15.5 % (13.2-15.2)
[2021-04-17 06:46] LABS: Alanine Aminotransferase 31 units/L (7-56); Albumin 3.8 g/dL (3.9-5); Blood Urea Nitrogen 11 mg/dL (7-17); Chol/HDL Ratio 2.71 %; HDL Cholesterol 49 mg/dL (40-59); Hemolysis Index 4; LDL Cholesterol,Direct 68 mg/dL (50-130)
[2021-04-17 07:10] LABS: BUN/Creatinine Ratio 18
[2021-04-17] MEDS ORDERED: INSULIN GLARGINE 100 UNITS/ML SUB-Q SCH (08:00)
[2021-04-17] MEDS ORDERED: DEXTROSE 50% IN WATER (25GM) 50 ML SYRINGE IV PRN (08:53)
--- NOTE | 2021-04-17 09:39 | Consultation ---
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 Patient was diagnosed with a acute CVA in December 2020 confirmed by MRI. Patient is says that she has slurred speech since last night which may be a new cerebrovascular accident. She has chronic right- sided weakness since last cerebrovascular accident in December. Patient is in rehab. Patient able to answer questions appropriately. Alert and oriented. Gives a good history. In ER CT brain is remarkable for right frontal possible slight hemorrhagic transformation CTA is remarkable for calcified and stenotic proximal ICA <30% - Past Medical History --Previous Medical History?: Yes --Hypertension: Yes --Diabetes: Yes --Deep Vein Thrombosis: Yes --Pulmonary Embolism: Yes --Additional medical history: High cholesterol - Surgical History Past Surgical History?: Yes Additional Surgical History: Lining of uterus removed - Social History Smoking Status: Never Smoker Substance Use Type: None Review of Systems ROS: Stated complaint: SLURRED SPEECH Other details as noted in HPI Constitutional: denies: fever Eyes: denies: eye discharge ENT: denies: epistaxis Respiratory: denies: cough Cardiovascular: denies: chest pain Gastrointestinal: denies: abdominal pain Genitourinary: denies: dysuria Neurological: weakness (Chronic weakness), other (New onset dysarthria) Medications and Allergies Allergies Allergy/AdvReac Type Severity Reaction Status Date / Time acetaminophen [From Lortab] AdvReac Unknown Unverified 11/25/16 09:46 hydrocodone bitartrate AdvReac Unknown Unverified 11/25/16 09:46 [From Lortab] Home Medications Medication Instructions Recorded Confirmed Last Taken Type Insulin Aspart (Nf) [NovoLOG 100 0 unit SQ AC 10/09/13 01/21/21 01/18/21 History UNITS/ML VIAL] Insulin Detemir [Levemir Flexpen] 50 unit SQ BID 10/09/13 01/21/21 01/18/21 History Metformin HCl [Glucophage] 1,000 mg PO BID 10/09/13 01/21/21 01/18/21 History Pioglitazone HCl [Actos] 15 mg PO QDAY 10/09/13 01/21/21 01/18/21 History Valsartan/Hydrochlorothiazide 1 each PO QDAY 10/09/13 01/21/21 01/18/21 History [Valsartan-Hctz 320-25 mg] Diphenoxylate HCl/Atropine 1 tab-cap PO Q6HR PRN #30 tablet 10/10/13 01/21/21 01/18/21 Rx [Lomotil 2.5-0.025 mg Tablet] Meclizine [Antivert] 25 mg PO Q8H PRN #30 tablet 10/10/13 01/21/21 01/14/21 Rx Aspirin 325 mg PO QDAY #30 tablet 01/21/21 Unknown Rx AtorvaSTATin [Lipitor] 40 mg PO QHS #30 tablet 01/21/21 Unknown Rx amLODIPine 5 mg PO QDAY #30 tablet 01/21/21 Unknown Rx Medications and Allergies Allergies Allergy/AdvReac Type Severity Reaction Status Date / Time acetaminophen [From Lortab] AdvReac Unknown Unverified 11/25/16 09:46 hydrocodone bitartrate AdvReac Unknown Unverified 11/25/16 09:46 [From Lortab] Home Medications Medication Instructions Recorded Confirmed Last Taken Type Insulin Aspart (Nf) [NovoLOG 100 0 unit SQ AC 10/09/13 01/21/21 01/18/21 History UNITS/ML VIAL] Insulin Detemir [Levemir Flexpen] 50 unit SQ BID 10/09/13 01/21/21 01/18/21 History Metformin HCl [Glucophage] 1,000 mg PO BID 10/09/13 01/21/21 01/18/21 History Pioglitazone HCl [Actos] 15 mg PO QDAY 10/09/13 01/21/21 01/18/21 History Valsartan/Hydrochlorothiazide 1 each PO QDAY 10/09/13 01/21/21 01/18/21 History [Valsartan-Hctz 320-25 mg] Diphenoxylate HCl/Atropine 1 tab-cap PO Q6HR PRN #30 tablet 10/10/13 01/21/21 01/18/21 Rx [Lomotil 2.5-0.025 mg Tablet] Meclizine [Antivert] 25 mg PO Q8H PRN #30 tablet 10/10/13 01/21/21 01/14/21 Rx Aspirin 325 mg PO QDAY #30 tablet 01/21/21 Unknown Rx AtorvaSTATin [Lipitor] 40 mg PO QHS #30 tablet 01/21/21 Unknown Rx amLODIPine 5 mg PO QDAY #30 tablet 01/21/21 Unknown Rx Active Meds: Active Medications Acetaminophen (Acetaminophen 325 Mg Tab) 650 mg PO Q4H PRN PRN Reason: Pain MILD(1-3)/Fever >100.5/[place] Amlodipine Besylate (Amlodipine 5 Mg Tab) 5 mg PO QDAY [facility] Atorvastatin Calcium (Atorvastatin 40 Mg Tab) 40 mg PO QHS [facility] Dextrose (Dextrose 50% In Water (25gm) 50 Ml Syringe) 50 ml IV Q30MIN PRN; Protocol PRN Reason: Hypoglycemia Famotidine (Famotidine 20 Mg/2 Ml Inj) 20 mg IV BID [facility] Last Admin: 04/17/21 00:43 Dose: 20 mg Documented by: Hydromorphone HCl (Hydromorphone 1 Mg/1 Ml Inj) 0.5 mg IV Q3H PRN PRN Reason: Pain , Severe (7-10) Insulin Glargine (Insulin Glargine 100 Units/Ml) 10 units SUB-Q QAM@0800 [facility] Insulin Human Lispro (Insulin Lispro 100 Unit/Ml) 0 unit SUB-Q [facility]; Protocol Meclizine HCl (Meclizine 25 Mg Tab) 25 mg PO Q8H PRN PRN Reason: Vertigo Metoclopramide HCl (Metoclopramide 10 Mg/2 Ml Inj) 10 mg IV Q6H PRN PRN Reason: Nausea And Vomiting Morphine Sulfate (Morphine 2 Mg/1 Ml Inj) 2 mg IV Q4H PRN PRN Reason: Pain, Moderate (4-6) Ondansetron HCl (Ondansetron 4 Mg/2 Ml Inj) 4 mg IV Q8H PRN PRN Reason: Nausea And Vomiting Sodium Chloride (Sodium Chloride 0.9% 10 Ml Flush Syringe) 10 ml IV BID [facility] Sodium Chloride (Sodium Chloride 0.9% 10 Ml Flush Syringe) 10 ml IV PRN PRN PRN Reason: LINE FLUSH Valsartan (Valsartan 160mg Tab) 320 mg PO QDAY [facility] Physical Examination - Vital Signs Vital Signs: Vital Signs Pulse Resp BP Pulse Ox 99 H 16 146/60 98 04/16/21 13:32 04/16/21 13:32 04/16/21 13:32 04/16/21 13:32 - Constitutional General appearance: comfortable - EENT EENT: Present: PERRL, mucous membranes moist - Respiratory Respiratory: Present: chest non-tender, lungs clear, rhonchi - Cardiovascular Cardiovascular: Present: regular rate, normal S1, normal S2 Extremities: Present: no peripheral edema bilatateraly, no clubbing, cyanosis - Gastrointestinal Gastrointestinal: Present: normoactive bowel sounds - Integumentary Integumentary: Present: normal - Neurologic Cranial nerve examination: PERRL, EOMI, intact Speech examination: other (slightly slurred speech, no aphasia no dysarthia) Detailed motor examination: other (right side weakness3/5 upper and lower reflexes are suppressed , planter is down , no sensory deficit , gait is not done) - Level of Consciousness 1a. Level of Consciousness: alert/keenly responsive - LOC Questions 1b. LOC Questions: answers both correctly - LOC Command 1c. LOC Commands: performs tasks correctly - Best Gaze 2. Best Gaze: normal - Visual 3. Visual: no visual loss - Facial Palsy 4. Facial Palsy: normal symmetrical movement - Motor Arm 5a. Motor Arm Left: no drift 5b. Motor Arm Right: some gravity effort - Motor Leg 6a. Motor Leg Left: no drift 6b. Motor Leg Right: some gravity effort - Limb Ataxia 7. Limb Ataxia: absent - Sensory 8. Sensory: normal - Best Language 9. Best Language: no aphasia - Dysarthria 10. Dysarthria: normal - Extinction and Inattention 11. Extinction/Inattention: no abnormality - Scoring Total Score: 4 Stroke Severity: Minor Stroke Results - Laboratory Findings CBC and BMP: 04/17/21 05:54 04/17/21 05:54 Abnormal Lab Findings: Abnormal Labs 04/16/21 04/16/21 04/16/21 13:43 14:17 14:17 RDW 15.7 H Lymph % (Auto) [place] % (Auto) 7.7 H Glucose 124 H POC Glucose 143 H Albumin 3.7 L Ur Specific [place] Urine WBC (Auto) 04/16/21 04/16/21 04/17/21 18:53 20:47 05:54 RDW 15.5 H Lymph % (Auto) 44.6 H [place] % (Auto) 7.9 H Glucose POC Glucose 113 H Albumin Ur Specific [place] 1.036 H Urine WBC (Auto) 44.0 H 04/17/21 05:54 RDW Lymph % (Auto) [place] % (Auto) Glucose 112 H POC Glucose Albumin 3.8 L Ur Specific [place] Urine WBC (Auto) Assessment and Plan Assessment and Plan - Patient Problems #Hx of CVA with residual right side weakness old since last December -presented with increase slurred speech CT brain is suggestive of hemorrhagic transformation right frontoparietal region and old left occipital CVA -CTA brain and neck is remarkable for calcified ICA stenosis<30% -Neurosurgery consult -MRI brain is pending -Hold ASA until MRI is done to do with gd . 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 The aggregate critical care time was 40 minutes. The time is in addition to time spent performing reported procedures but includes the followin: Data review and interpretation 2: Patient assessment and monitoring of vital signs 3: Documentation 4:: Medication orders and management Advance Directives: Yes (Full code) VTE prophylaxis?: Chemical Plan of care discussed with patient/family: Yes
[2021-04-17] MEDS ORDERED: amLODIPine 5 MG TAB PO SCH (10:00)
[2021-04-17] MEDS ORDERED: HYDROCHLOROTHIAZIDE PO SCH (10:00)
[2021-04-17] MEDS ORDERED: [UNRECOGNIZED DRUG - OTHER] PO SCH (10:00)
[2021-04-17] MEDS ORDERED: VALSARTAN PO SCH (10:00)
[2021-04-17] MEDS ORDERED: hydroCHLOROthiazide 25 MG TAB PO SCH (10:00)
[2021-04-17] MEDS: VALSARTAN 160MG TAB PO SCH (10:39)
--- NOTE | 2021-04-17 10:44 | Electrocardiograph Report ---
[facility] Test Date: 2021-04-16 Test Time: 14:53:49 Pat Name: KARINA HDEZ Department: Room: A256 1 Gender: F Rigger Up: ALLEGRA : 1965 Requested By: LASHAE AGGARWAL Order Number: [id number] Reading MD: Scott Chavarria Measurements Intervals [place] Rate: 90 P: 23 OH: 218 QRS: 65 QRSD: 76 T: -3 QT: 374 QTc: 459 Interpretive Statements Sinus rhythm Prolonged OH interval Borderline T abnormalities, diffuse leads Compared to ECG 01/18/2021 16:54:08 T-wave abnormality now present Right-axis deviation no longer present Electronically Signed On 04-17-2021 10:43:41 EST by Scott Chavarria
[2021-04-17] MEDS: INSULIN LISPRO 100 UNIT/ML SUB-Q SCH ×3 (11:55→21:32)
--- NOTE | 2021-04-17 13:26 | Consultation ---
History of Present Illness - Reason for Consult Consult date: 04/17/21 [facility] Requesting physician: LASHAE AGGARWAL - History of Present Illness 56 y/o female admitted with stroke with hemorrhagic conversion. Evaluated by neurology but not neurosurgery as of yet. Recs were given for ICU monitoring with q1 hour neuro checks. No acute issues over night and neurologic exam is unchanged when based on admission assessment. Hemodynamically patient is stable as well. Remainder is negative. Past History Past Medical History: diabetes, hypertension Medications and Allergies Allergies Allergy/AdvReac Type Severity Reaction Status Date / Time acetaminophen [From Lortab] AdvReac Unknown Unverified 11/25/16 09:46 hydrocodone bitartrate AdvReac Unknown Unverified 11/25/16 09:46 [From Lortab] Home Medications Medication Instructions Recorded Confirmed Last Taken Type Insulin Aspart (Nf) [NovoLOG 100 0 unit SQ AC 10/09/13 01/21/21 01/18/21 History UNITS/ML VIAL] Insulin Detemir [Levemir Flexpen] 50 unit SQ BID 10/09/13 01/21/21 01/18/21 History Metformin HCl [Glucophage] 1,000 mg PO BID 10/09/13 01/21/21 01/18/21 History Pioglitazone HCl [Actos] 15 mg PO QDAY 10/09/13 01/21/21 01/18/21 History Valsartan/Hydrochlorothiazide 1 each PO QDAY 10/09/13 01/21/21 01/18/21 History [Valsartan-Hctz 320-25 mg] Diphenoxylate HCl/Atropine 1 tab-cap PO Q6HR PRN #30 tablet 10/10/13 01/21/21 01/18/21 Rx [Lomotil 2.5-0.025 mg Tablet] Meclizine [Antivert] 25 mg PO Q8H PRN #30 tablet 10/10/13 01/21/21 01/14/21 Rx Aspirin 325 mg PO QDAY #30 tablet 01/21/21 Unknown Rx AtorvaSTATin [Lipitor] 40 mg PO QHS #30 tablet 01/21/21 Unknown Rx amLODIPine 5 mg PO QDAY #30 tablet 01/21/21 Unknown Rx Active Meds: Active Medications Acetaminophen (Acetaminophen 325 Mg Tab) 650 mg PO Q4H PRN PRN Reason: Pain MILD(1-3)/Fever >100.5/[place] Amlodipine Besylate (Amlodipine 5 Mg Tab) 5 mg PO QDAY [facility] Last Admin: 04/17/21 10:39 Dose: 5 mg Documented by: Atorvastatin Calcium (Atorvastatin 40 Mg Tab) 40 mg PO QHS [facility] Dextrose (Dextrose 50% In Water (25gm) 50 Ml Syringe) 50 ml IV Q30MIN PRN; Protocol PRN Reason: Hypoglycemia Famotidine (Famotidine 20 Mg/2 Ml Inj) 20 mg IV BID [facility] Last Admin: 04/17/21 10:40 Dose: 20 mg Documented by: Hydromorphone HCl (Hydromorphone 1 Mg/1 Ml Inj) 0.5 mg IV Q3H PRN PRN Reason: Pain , Severe (7-10) Insulin Glargine (Insulin Glargine 100 Units/Ml) 10 units SUB-Q QAM@0800 [facility] Insulin Human Lispro (Insulin Lispro 100 Unit/Ml) 0 unit SUB-Q [facility]; Protocol Last Admin: 04/17/21 11:55 Dose: Not Given Documented by: Meclizine HCl (Meclizine 25 Mg Tab) 25 mg PO Q8H PRN PRN Reason: Vertigo Metoclopramide HCl (Metoclopramide 10 Mg/2 Ml Inj) 10 mg IV Q6H PRN PRN Reason: Nausea And Vomiting Morphine Sulfate (Morphine 2 Mg/1 Ml Inj) 2 mg IV Q4H PRN PRN Reason: Pain, Moderate (4-6) Ondansetron HCl (Ondansetron 4 Mg/2 Ml Inj) 4 mg IV Q8H PRN PRN Reason: Nausea And Vomiting Sodium Chloride (Sodium Chloride 0.9% 10 Ml Flush Syringe) 10 ml IV BID [facility] Last Admin: 04/17/21 10:41 Dose: 10 ml Documented by: Sodium Chloride (Sodium Chloride 0.9% 10 Ml Flush Syringe) 10 ml IV PRN PRN PRN Reason: LINE FLUSH Valsartan (Valsartan 160mg Tab) 320 mg PO QDAY [facility] Last Admin: 04/17/21 10:39 Dose: 320 mg Documented by: Exam - Constitutional Vitals: Temp Pulse Resp BP Pulse Ox 98.2 F 81 11 L 127/65 100 04/17/21 12:00 04/17/21 13:00 04/17/21 13:00 04/17/21 13:00 04/17/21 13:00 Results - Labs CBC & Chem 7: 04/17/21 05:54 04/17/21 05:54 Labs: Abnormal lab results 04/16/21 04/16/21 04/16/21 Range/Units 13:43 14:17 14:17 RDW 15.7 H (13.2-15.2) % Lymph % (Auto) (13.4-35.0) % [place] % (Auto) 7.7 H (0.0-7.3) % Glucose 124 H (65-100) mg/dL POC Glucose 143 H (70-105) mg/dL Albumin 3.7 L (3.9-5) g/dL Ur Specific [place] (1.003-1.030) Urine WBC (Auto) (0.0-6.0) /HPF 04/16/21 04/16/21 04/17/21 Range/Units 18:53 20:47 05:54 RDW 15.5 H (13.2-15.2) % Lymph % (Auto) 44.6 H (13.4-35.0) % [place] % (Auto) 7.9 H (0.0-7.3) % Glucose (65-100) mg/dL POC Glucose 113 H (70-105) mg/dL Albumin (3.9-5) g/dL Ur Specific [place] 1.036 H (1.003-1.030) Urine WBC (Auto) 44.0 H (0.0-6.0) /HPF 04/17/21 04/17/21 Range/Units 05:54 11:45 RDW (13.2-15.2) % Lymph % (Auto) (13.4-35.0) % [place] % (Auto) (0.0-7.3) % Glucose 112 H (65-100) mg/dL POC Glucose 140 H (70-105) mg/dL Albumin 3.8 L (3.9-5) g/dL Ur Specific [place] (1.003-1.030) Urine WBC (Auto) (0.0-6.0) /HPF - Imaging and Cardiology CT Scan - head: report reviewed (reviewed all head CT reports) Assessment and Plan 56 y/o female with ischemic stroke with hemorrhagic conversion. 1. Stable from a critical care standpoint. 2. Will transfer to [facility] with remote tele, post MRI 3. Neurology recommended MRI 4. Follow up neurosurgery recs if any 5. Will sign off once out of unit.
[2021-04-17] MEDS ORDERED: LORazepam 2 MG/ML VIAL IV SCH (15:00)
[2021-04-17] MEDS ORDERED: hydrALAZINE 20 MG/1 ML INJ IV PRN (16:24)
--- NOTE | 2021-04-17 16:36 | Progress Note ---
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 admitted for acute hemorrhagic CVA Neuro: Acute hemorrhagic CVA, h/o CVA -Neurology and neurosurgery consulted, appreciate recommendations -Admitted to ICU for hourly neuro checks -Repeat MRI brain pending -PT/OT consult -Hold aspirin per neurology until MRI is completed -Echocardiogram pending -ST/PT consult -Maintain normothermia and avoid hypoglycemia -Systolic blood pressure goal of less than 160 -Home amlodipine and valsartan started for blood pressure control -Blood pressure monitor per protocol -Lipid panel pending -Lipitor 40 mg nightly restarted -Aspiration/fall precautions -prn antivert, PO oxycodone Cardio: h/o HTN, HLD -Restarted home amlodipine and added valsartan -Per neurology blood pressure goal less than 150/80 -Blood pressure monitor per protocol -Echo pending Resp: NAD, ? JULIA -CPAP q hs -Desaturation with sleeping -Patient states that she was CPAP at home -Pulmonary hygiene -Supplemental oxygen as needed -SPO2 monitoring GI: MO -CC diet -24 hours 1450 -BR: Senna -PPI : NAD -Trend BMP -Intervene as needed Endo: h/o DM -Accu-Cheks every 6 -SSI -Decrease home Levemir -Hold home Actos and Metformin -Avoid hypoglycemia -UC pending ID: [id number] -Monitor WBC and fever trend Heme: h/o ? PE/DVT -SCDs to BLE while in bed -hold chemical anticougulaiton in setting of hemorrhagic CVA or until cleared by neurosurgery/neurology The high probability of a clinically significant, sudden or life threatening deterioration of the [neuro] system(s) required my full and direct attention, intervention and personal management. The aggregate critical care time was [60] minutes. This time is in addition to time spent performing reported procedures but includes the following: [x] Data Review and interpretation [x] Patient assessment and monitoring of vital signs [x] Documentation [x] Medication orders and management Disposition Plan: transfer to floor Total Time Spent with Patient (Minutes): 60 History Interval history: This is a 56-year-old female with DM, HTN, DVT, PE, HLD, CVA 12/2020 with right- sided hemiplegia presented with slurred speech since 04/15 from rehab. Work-up in the emergency department included a CT head which showed possible developing infarct along the right frontoparietal region and evolutionary changes in infarct from December, microvascular angiopathy, CTA head showed findings concerning for evolving hemorrhagic infarct in the right frontoparietal junction and CTA neck showed atherosclerotic calcification involving the right carotid bifurcation and proximal right internal carotid artery. Neurosurgery, neurology and [facility] were consulted. Patient was admitted to the hospital service for acute hemorrhagic CVA. 04/17: Patient had MRI brain today, remains hemodynamically stable and will be transferred to telemetry. She received 2 mg of Ativan IV x1 for MRI scan due to claustrophobia. Hospitalist Physical - Constitutional Vitals: Temp Pulse Resp BP Pulse Ox 98.2 F 86 11 L 124/71 97 04/17/21 12:00 04/17/21 14:00 04/17/21 14:00 04/17/21 14:00 04/17/21 14:00 General appearance: Present: no acute distress, well-nourished - EENT Eyes: Present: PERRL, EOM intact ENT: clear oral mucosa, dentition normal - Neck Neck: Present: normal ROM - Respiratory Respiratory effort: normal Respiratory: bilateral: CTA - Cardiovascular Rhythm: regular Heart Sounds: Present: S1 & S2. Absent: systolic murmur, diastolic murmur - Extremities Extremities: no ischemia, pulses intact, pulses symmetrical, No edema, normal temperature, normal color Peripheral Pulses: within normal limits - Abdominal General gastrointestinal: soft, non-tender, non-distended, normal bowel sounds - Integumentary Integumentary: Present: warm, dry - Psychiatric Psychiatric: cooperative - Neurologic Neurologic: focal deficits (right sided weaknes, right sided drift to UE and LE, left sided facial droop) - Allied Health Allied health notes reviewed: nursing, RT, social work HEART Score - HEART Score Troponin: Troponin T < 0.010 ng/mL (0.00-0.029) 04/16/21 14:17 Results - Labs CBC & Chem 7: 04/17/21 05:54 04/17/21 05:54 Labs: Laboratory Last Values WBC 6.4 K/mm3 (4.5-11.0) 04/17/21 05:54 RBC 3.84 M/mm3 (3.65-5.03) 04/17/21 05:54 Hgb 11.3 gm/dl (10.1-14.3) 04/17/21 05:54 Hct 35.1 % (30.3-42.9) 04/17/21 05:54 MCV 91 fl (79-97) 04/17/21 05:54 MCH 30 pg (28-32) 04/17/21 05:54 MCHC 32 % (30-34) 04/17/21 05:54 RDW 15.5 % (13.2-15.2) H 04/17/21 05:54 Plt Count 244 K/mm3 (140-440) 04/17/21 05:54 Lymph % (Auto) 44.6 % (13.4-35.0) H 04/17/21 05:54 Rains % (Auto) 7.9 % (0.0-7.3) H 04/17/21 05:54 Eos % (Auto) 0.6 % (0.0-4.3) 04/17/21 05:54 Baso % (Auto) 0.2 % (0.0-1.8) 04/17/21 05:54 Lymph # (Auto) 2.8 K/mm3 (1.2-5.4) 04/17/21 05:54 Rains # (Auto) 0.5 K/mm3 (0.0-0.8) 04/17/21 05:54 Eos # (Auto) 0.0 K/mm3 (0.0-0.4) 04/17/21 05:54 Baso # (Auto) 0.0 K/mm3 (0.0-0.1) 04/17/21 05:54 Seg Neutrophils % 46.7 % (40.0-70.0) 04/17/21 05:54 Seg Neutrophils # 3.0 K/mm3 (1.8-7.7) 04/17/21 05:54 PT 12.8 Sec. (12.2-14.9) 04/16/21 14:17 INR 0.87 (0.87-1.13) 04/16/21 14:17 APTT 25.7 Sec. (24.2-36.6) 04/16/21 14:17 Thrombin Time 18.8 Sec. (15.1-19.6) 04/16/21 14:17 Sodium 142 mmol/L (137-145) 04/17/21 05:54 Potassium 3.8 mmol/L (3.6-5.0) 04/17/21 05:54 Chloride 99.3 mmol/L (98-107) 04/17/21 05:54 Carbon Dioxide 30 mmol/L (22-30) 04/17/21 05:54 Anion Gap 17 mmol/L 04/17/21 05:54 BUN 11 mg/dL (7-17) 04/17/21 05:54 Creatinine 0.6 mg/dL (0.6-1.2) 04/17/21 05:54 Estimated GFR > 60 ml/min 04/17/21 05:54 BUN/Creatinine Ratio 18 % 04/17/21 05:54 Glucose 112 mg/dL (65-100) H 04/17/21 05:54 POC Glucose 140 mg/dL (70-105) H 04/17/21 11:45 Calcium 9.0 mg/dL (8.4-10.2) 04/17/21 05:54 Total Bilirubin 0.50 mg/dL (0.1-1.2) 04/17/21 05:54 AST 22 units/L (5-40) 04/17/21 05:54 ALT 31 units/L (7-56) 04/17/21 05:54 Alkaline Phosphatase 59 units/L (35-129) 04/17/21 05:54 Total Creatine Kinase 93 units/L (30-135) 04/16/21 14:17 CK-MB (CK-2) 1.4 ng/mL (0.0-4.0) 04/16/21 14:17 CK-MB (CK-2) Rel Index 1.5 (0-4) 04/16/21 14:17 Troponin T < 0.010 ng/mL (0.00-0.029) 04/16/21 14:17 Total Protein 6.6 g/dL (6.3-8.2) 04/17/21 05:54 Albumin 3.8 g/dL (3.9-5) L 04/17/21 05:54 Albumin/Globulin Ratio 1.4 % 04/17/21 05:54 Triglycerides 74 mg/dL (2-149) 04/17/21 05:54 Cholesterol 133 mg/dL (50-199) 04/17/21 05:54 LDL Cholesterol Direct 68 mg/dL (50-130) 04/17/21 05:54 HDL Cholesterol 49 mg/dL (40-59) 04/17/21 05:54 Cholesterol/HDL Ratio 2.71 % 04/17/21 05:54 Urine Color Yellow (Yellow) 04/16/21 18:53 Urine Turbidity Slightly-cloudy (Clear) 04/16/21 18:53 Urine pH 6.0 (5.0-7.0) 04/16/21 18:53 Ur Specific [place] 1.036 (1.003-1.030) H 04/16/21 18:53 Urine Protein <15 mg/dl mg/dL (Negative) 04/16/21 18:53 Urine Glucose (UA) Neg mg/dL (Negative) 04/16/21 18:53 Urine Ketones Neg mg/dL (Negative) 04/16/21 18:53 Urine Blood Mod (Negative) 04/16/21 18:53 Urine Nitrite Neg (Negative) 04/16/21 18:53 Urine Bilirubin Neg (Negative) 04/16/21 18:53 Urine Urobilinogen 2.0 mg/dL (<2.0) 04/16/21 18:53 Ur Leukocyte Esterase Lg (Negative) 04/16/21 18:53 Urine WBC (Auto) 44.0 /HPF (0.0-6.0) H 04/16/21 18:53 Urine RBC (Auto) 10.0 /HPF (0.0-6.0) 04/16/21 18:53 U Epithel Cells (Auto) 2.0 /HPF (0-13.0) 04/16/21 18:53 Urine Bacteria (Auto) 2+ /HPF (Negative) 04/16/21 18:53 Urine Mucus Few /HPF 04/16/21 18:53 Urine Yeast (Budding) 1+ /HPF 04/16/21 18:53 Microbiology: Microbiology 04/16/21 18:53 Urine,Clean Catch Urine Culture - Preliminary Hernandez/IV: Voiding Method External Female Catheter Active Medications - Current Medications Current Medications: Generic Name Dose Route Start Last Admin Trade Name Freq PRN Reason Stop Dose Admin Acetaminophen 650 mg 04/16/21 23:04 Acetaminophen 325 Mg Tab PO Q4H PRN Pain MILD(1-3)/Fever >100.5/EDWARDS Amlodipine Besylate 5 mg 04/17/21 10:00 04/17/21 10:39 Amlodipine 5 Mg Tab PO 5 mg QDAY [facility]U Administration Atorvastatin Calcium 40 mg 04/17/21 22:00 Atorvastatin 40 Mg Tab PO QHS [facility] Dextrose 50 ml 04/17/21 08:53 Dextrose 50% In Water (25gm) 50 Ml Syringe IV Q30MIN PRN Hypoglycemia Protocol Famotidine 20 mg 04/16/21 23:45 04/17/21 10:40 Famotidine 20 Mg/2 Ml Inj IV 20 mg BID [facility] Administration Famotidine 40 mg 04/18/21 10:00 Famotidine 20 Mg Tab PO QDAY [facility] Hydralazine HCl 10 mg 04/17/21 16:24 Hydralazine 20 Mg/1 Ml Inj IV Q4HR PRN Hypertension Hydromorphone HCl 0.5 mg 04/16/21 23:04 Hydromorphone 1 Mg/1 Ml Inj IV Q3H PRN Pain , Severe (7-10) Insulin Glargine 10 units 04/18/21 08:00 Insulin Glargine 100 Units/Ml SUB-Q QAM@0800 [facility] Insulin Human Lispro 0 unit 04/17/21 11:30 04/17/21 11:55 Insulin Lispro 100 Unit/Ml SUB-Q Not Given ACHS [facility] Protocol Meclizine HCl 25 mg 04/16/21 22:57 Meclizine 25 Mg Tab PO Q8H PRN Vertigo Metoclopramide HCl 10 mg 04/16/21 23:04 Metoclopramide 10 Mg/2 Ml Inj IV Q6H PRN Nausea And Vomiting Ondansetron HCl 4 mg 04/16/21 23:04 Ondansetron 4 Mg/2 Ml Inj IV Q8H PRN Nausea And Vomiting Senna 17.2 mg 04/17/21 22:00 Sennosides 8.6 Mg Tab PO QHS [facility] Sodium Chloride 10 ml 04/17/21 10:00 04/17/21 10:41 Sodium Chloride 0.9% 10 Ml Flush Syringe IV 10 ml BID [facility] Administration Sodium Chloride 10 ml 04/16/21 23:06 Sodium Chloride 0.9% 10 Ml Flush Syringe IV PRN PRN LINE FLUSH Valsartan 320 mg 04/17/21 10:00 04/17/21 10:39 Valsartan 160mg Tab PO 320 mg QDAY [facility]U Administration <KIM GHOSH - Last Filed: 04/19/21 07:21> Assessment and Plan Assessment and plan: I saw and evaluated the patient. Discussed with the nurse practitioner and agree with their findings and plan as documented in this note. Hospitalist Physical - Constitutional Vitals: Temp Pulse Resp BP Pulse Ox 98.2 F 82 18 106/71 100 04/19/21 05:40 04/19/21 05:40 04/19/21 05:40 04/19/21 05:40 04/19/21 05:40 HEART Score - HEART Score Troponin: Troponin T < 0.010 ng/mL (0.00-0.029) 04/16/21 14:17 Results - Labs CBC & Chem 7: 04/18/21 04:29 04/18/21 04:29 Labs: Laboratory Last Values WBC 6.5 K/mm3 (4.5-11.0) 04/18/21 04:29 RBC 3.92 M/mm3 (3.65-5.03) 04/18/21 04:29 Hgb 11.3 gm/dl (10.1-14.3) 04/18/21 04:29 Hct 35.7 % (30.3-42.9) 04/18/21 04:29 MCV 91 fl (79-97) 04/18/21 04:29 MCH 29 pg (28-32) 04/18/21 04:29 MCHC 32 % (30-34) 04/18/21 04:29 RDW 15.4 % (13.2-15.2) H 04/18/21 04:29 Plt Count 238 K/mm3 (140-440) 04/18/21 04:29 Lymph % (Auto) 44.6 % (13.4-35.0) H 04/17/21 05:54 Rains % (Auto) 7.9 % (0.0-7.3) H 04/17/21 05:54 Eos % (Auto) 0.6 % (0.0-4.3) 04/17/21 05:54 Baso % (Auto) 0.2 % (0.0-1.8) 04/17/21 05:54 Lymph # (Auto) 2.8 K/mm3 (1.2-5.4) 04/17/21 05:54 Rains # (Auto) 0.5 K/mm3 (0.0-0.8) 04/17/21 05:54 Eos # (Auto) 0.0 K/mm3 (0.0-0.4) 04/17/21 05:54 Baso # (Auto) 0.0 K/mm3 (0.0-0.1) 04/17/21 05:54 Seg Neutrophils % 46.7 % (40.0-70.0) 04/17/21 05:54 Seg Neutrophils # 3.0 K/mm3 (1.8-7.7) 04/17/21 05:54 PT 12.8 Sec. (12.2-14.9) 04/16/21 14:17 INR 0.87 (0.87-1.13) 04/16/21 14:17 APTT 25.7 Sec. (24.2-36.6) 04/16/21 14:17 Thrombin Time 18.8 Sec. (15.1-19.6) 04/16/21 14:17 Sodium 142 mmol/L (137-145) 04/18/21 04:29 Potassium 3.8 mmol/L (3.6-5.0) 04/18/21 04:29 Chloride 102.4 mmol/L (98-107) 04/18/21 04:29 Carbon Dioxide 29 mmol/L (22-30) 04/18/21 04:29 Anion Gap 14 mmol/L 04/18/21 04:29 BUN 12 mg/dL (7-17) 04/18/21 04:29 Creatinine 0.7 mg/dL (0.6-1.2) 04/18/21 04:29 Estimated GFR > 60 ml/min 04/18/21 04:29 BUN/Creatinine Ratio 17 % 04/18/21 04:29 Glucose 178 mg/dL (65-100) H 04/18/21 04:29 POC Glucose 275 mg/dL (70-105) H 04/18/21 21:12 Calcium 9.4 mg/dL (8.4-10.2) 04/18/21 04:29 Phosphorus 4.20 mg/dL (2.5-4.5) 04/18/21 04:29 Magnesium 1.60 mg/dL (1.7-2.3) L 04/18/21 04:29 Total Bilirubin 0.50 mg/dL (0.1-1.2) 04/17/21 05:54 AST 22 units/L (5-40) 04/17/21 05:54 ALT 31 units/L (7-56) 04/17/21 05:54 Alkaline Phosphatase 59 units/L (35-129) 04/17/21 05:54 Total Creatine Kinase 93 units/L (30-135) 04/16/21 14:17 CK-MB (CK-2) 1.4 ng/mL (0.0-4.0) 04/16/21 14:17 CK-MB (CK-2) Rel Index 1.5 (0-4) 04/16/21 14:17 Troponin T < 0.010 ng/mL (0.00-0.029) 04/16/21 14:17 Total Protein 6.6 g/dL (6.3-8.2) 04/17/21 05:54 Albumin 3.8 g/dL (3.9-5) L 04/17/21 05:54 Albumin/Globulin Ratio 1.4 % 04/17/21 05:54 Triglycerides 74 mg/dL (2-149) 04/17/21 05:54 Cholesterol 133 mg/dL (50-199) 04/17/21 05:54 LDL Cholesterol Direct 68 mg/dL (50-130) 04/17/21 05:54 HDL Cholesterol 49 mg/dL (40-59) 04/17/21 05:54 Cholesterol/HDL Ratio 2.71 % 04/17/21 05:54 Urine Color Yellow (Yellow) 04/16/21 18:53 Urine Turbidity Slightly-cloudy (Clear) 04/16/21 18:53 Urine pH 6.0 (5.0-7.0) 04/16/21 18:53 Ur Specific [place] 1.036 (1.003-1.030) H 04/16/21 18:53 Urine Protein <15 mg/dl mg/dL (Negative) 04/16/21 18:53 Urine Glucose (UA) Neg mg/dL (Negative) 04/16/21 18:53 Urine Ketones Neg mg/dL (Negative) 04/16/21 18:53 Urine Blood Mod (Negative) 04/16/21 18:53 Urine Nitrite Neg (Negative) 04/16/21 18:53 Urine Bilirubin Neg (Negative) 04/16/21 18:53 Urine Urobilinogen 2.0 mg/dL (<2.0) 04/16/21 18:53 Ur Leukocyte Esterase Lg (Negative) 04/16/21 18:53 Urine WBC (Auto) 44.0 /HPF (0.0-6.0) H 04/16/21 18:53 Urine RBC (Auto) 10.0 /HPF (0.0-6.0) 04/16/21 18:53 U Epithel Cells (Auto) 2.0 /HPF (0-13.0) 04/16/21 18:53 Urine Bacteria (Auto) 2+ /HPF (Negative) 04/16/21 18:53 Urine Mucus Few /HPF 04/16/21 18:53 Urine Yeast (Budding) 1+ /HPF 04/16/21 18:53 Coronavirus (PCR) Negative (Negative) 04/18/21 Unknown Microbiology: Microbiology 04/16/21 18:53 Urine,Clean Catch Urine Culture - Final Hernandez/IV: Voiding Method External Female Catheter Active Medications - Current Medications Current Medications: Generic Name Dose Route Start Last Admin Trade Name Freq PRN Reason Stop Dose Admin Acetaminophen 650 mg 04/16/21 23:04 Acetaminophen 325 Mg Tab PO Q4H PRN Pain MILD(1-3)/Fever >100.5/[place] Amlodipine Besylate 10 mg 04/18/21 10:00 04/18/21 09:35 Amlodipine 10 Mg Tab PO 10 mg DAILY [facility] Administration Aspirin 81 mg 04/18/21 14:00 04/18/21 14:46 Aspirin Ec 81 Mg Tab PO 81 mg QDAY [facility] Administration Atorvastatin Calcium 40 mg 04/17/21 22:00 04/18/21 21:47 Atorvastatin 40 Mg Tab PO 40 mg QHS [facility] Administration Dextrose 50 ml 04/17/21 08:53 Dextrose 50% In Water (25gm) 50 Ml Syringe IV Q30MIN PRN Hypoglycemia Protocol Famotidine 40 mg 04/18/21 10:00 04/18/21 09:35 Famotidine 20 Mg Tab PO 40 mg QDAY [facility] Administration Hydralazine HCl 10 mg 04/17/21 16:24 Hydralazine 20 Mg/1 Ml Inj IV Q4HR PRN Hypertension Hydromorphone HCl 0.5 mg 04/16/21 23:04 Hydromorphone 1 Mg/1 Ml Inj IV Q3H PRN Pain , Severe (7-10) Insulin Glargine 10 units 04/18/21 08:00 04/18/21 09:34 Insulin Glargine 100 Units/Ml SUB-Q 10 units QAM@0800 [facility] Administration Insulin Human Lispro 0 unit 04/17/21 11:30 04/18/21 21:47 Insulin Lispro 100 Unit/Ml SUB-Q 3 unit ACHS [facility] Administration Protocol Meclizine HCl 25 mg 04/16/21 22:57 Meclizine 25 Mg Tab PO Q8H PRN Vertigo Metoclopramide HCl 10 mg 04/16/21 23:04 Metoclopramide 10 Mg/2 Ml Inj IV Q6H PRN Nausea And Vomiting Ondansetron HCl 4 mg 04/16/21 23:04 Ondansetron 4 Mg/2 Ml Inj IV Q8H PRN Nausea And Vomiting Senna 17.2 mg 04/17/21 22:00 04/18/21 21:47 Sennosides 8.6 Mg Tab PO 17.2 mg QHS [facility] Administration Sodium Chloride 10 ml 04/17/21 10:00 04/18/21 21:48 Sodium Chloride 0.9% 10 Ml Flush Syringe IV 10 ml BID [facility] Administration Sodium Chloride 10 ml 04/16/21 23:06 Sodium Chloride 0.9% 10 Ml Flush Syringe IV PRN PRN LINE FLUSH Valsartan 320 mg 04/17/21 10:00 04/18/21 09:35 Valsartan 160mg Tab PO 320 mg QDAY [facility] Administration
--- NOTE | 2021-04-17 17:16 | Magnetic Resonance Report ---
NONENHANCED MR SCAN OF THE BRAIN: INDICATION / CLINICAL INFORMATION: stroke, RT SIDED WEAKNESS Patient motion, best possible exam.. TECHNIQUE: Multiplanar, multisequence MR images of the brain obtained. COMPARISON: CT scan of the head from 04/16/2021 (2 different examinations) and MR scan of the brain from FINDINGS: BRAIN / INTRACRANIAL CONTENTS: In the previous MRI scan from 01/17/2021, in the gradient echo images, multiple focal areas of chronic microbleed seen in the right cerebral hemisphere. In the [address] scans, focal hemorrhagic lesion is seen in the right middle frontal gyrus subcortical white matter is new. Differential consideratio ns are amyloid angiopathy, hypertensive microbleed, thrombotic angiopathy. In the diffusion-weighted images, no focal area of restrictive diffusion seen. This would exclude acu te/subacute ischemia. Chronic ischemic changes are seen in both cerebellar hemispheres, left basal ganglia, periventricular white matter. High convexity cortical sulci are well preserved. CRANIOCERVICAL JUNCTION: No significant abnormality. VASCULAR FLOW-VOIDS: No significant abnormality. ORBITS: No significant abnormality of visualized orbits. SINUSES / MASTOIDS: No significant abnormality of visualized sinuses and mastoid air cells. ADDITIONAL FINDINGS: None. IMPRESSION: 1. Focal hemorrhage seen in the recent CT scan has susceptibility changes; there are also chronic hem orrhagic lesions in the right cerebral hemisphere; the differential considerations are amyloid angiop athy, hypertensive microbleeds, thrombotic angiopathy Signer Name: Malika Romero MD Signed: 04/17/2021 5:12 PM Workstation Name: [id number]
[2021-04-17] MEDS: SENNOSIDES 8.6 MG TAB PO SCH (21:21)
[2021-04-18 05:17] LABS: Hematocrit 35.7 % (30.3-42.9); Hemoglobin 11.3 gm/dl (10.1-14.3); Mean Corpuscular HGB Conc 32 % (30-34); Mean Corpuscular Volume 91 fl (79-97); Platelet Count 238 K/mm3 (140-440); Red Blood Count 3.92 M/mm3 (3.65-5.03); Red Cell Distribution Width 15.4 % (13.2-15.2)
[2021-04-18 05:28] LABS: Blood Urea Nitrogen 12 mg/dL (7-17); Calcium 9.4 mg/dL (8.4-10.2); Hemolysis Index 6
[2021-04-18 05:29] LABS: BUN/Creatinine Ratio 17
[2021-04-18] MEDS ORDERED: amLODIPine 5 MG TAB PO SCH (07:28)
--- NOTE | 2021-04-18 08:19 | Progress Note ---
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 Work-up in the emergency department included a CT head which showed possible developing infarct along the right frontoparietal region and evolutionary changes in infarct from December, microvascular angiopathy, CTA head showed findings concerning for evolving hemorrhagic infarct in the right frontoparietal junction and CTA neck showed atherosclerotic calcification involving the right carotid bifurcation and proximal right internal carotid artery. Neurosurgery, neurology and [facility] were consulted. Patient was admitted to the hospital service for acute hemorrhagic CVA. 04/17: Patient had MRI brain today, remains hemodynamically stable and will be transferred to telemetry. She received 2 mg of Ativan IV x1 for MRI scan due to claustrophobia. 04/18: pending NSG eval. Neurology recommends ECHO with bubble study. Added amlodipine 10 mg for better BP control. PT eval noted. Patient can return to [facility] once medically cleared. Neuro: Acute hemorrhagic CVA, h/o CVA -Neurology and neurosurgery consulted, appreciate recommendations -Admitted to ICU for hourly neuro checks -Repeat MRI brain pending -PT/OT consult -Hold aspirin per neurology until MRI is completed -Echocardiogram pending -ST/PT consult -Maintain normothermia and avoid hypoglycemia -Systolic blood pressure goal of less than 160 -Home amlodipine and valsartan started for blood pressure control -Blood pressure monitor per protocol -Lipid panel pending -Lipitor 40 mg nightly restarted -Aspiration/fall precautions -prn antivert, PO oxycodone Cardio: h/o HTN, HLD -Restarted home amlodipine and added valsartan -Per neurology blood pressure goal less than 150/80 -Blood pressure monitor per protocol -Echo pending Resp: NAD, ? JULIA -CPAP q hs -Desaturation with sleeping -Patient states that she was CPAP at home -Pulmonary hygiene -Supplemental oxygen as needed -SPO2 monitoring GI: MO -CC diet -24 hours 1450 -BR: Senna -PPI : NAD -Trend BMP -Intervene as needed Endo: h/o DM -Accu-Cheks every 6 -SSI -Decrease home Levemir -Hold home Actos and Metformin -Avoid hypoglycemia -UC pending ID: [id number] -Monitor WBC and fever trend Heme: h/o ? PE/DVT -SCDs to BLE while in bed -hold chemical anticougulaiton in setting of hemorrhagic CVA or until cleared by neurosurgery/neurology History Interval history: Resting comfortably on encounter. No acute complaints. She states that speech r emains slurred but slowly regaining function. Patient was a resident of [facility] due to prior cva. She was receiving rehab services there. Discuss with patient additional diagnostic tests pending, ent consultant recommendations, and changes to medication. She verbalized understanding. Hospitalist Physical - Physical exam Narrative exam: Physical Exam: VITAL SIGNS: Reviewed. GENERAL: The patient appears normally developed, Vital signs as documented. HEAD: No signs of head trauma. EYES: Pupils are equal. Extraocular motions intact. EARS: Hearing grossly intact. MOUTH: Oropharynx is normal. NECK: No adenopathy, no JVD. CHEST: Chest with clear breath sounds bilaterally. No wheezes, rales, or rhonchi. CARDIAC: Regular rate and rhythm. S1 and S2, without murmurs, gallops, or rubs. VASCULAR: No Edema. Peripheral pulses normal and equal in all extremities. ABDOMEN: Soft, non tender and non distended. No rebound or guarding, and no masses palpated. Bowel Sounds normal. MUSCULOSKELETAL: Good range of motion of all major joints. Extremities without clubbing, cyanosis or edema. NEUROLOGIC EXAM: Alert and oriented x 4. no focal sensory or strength deficits. PSYCHIATRIC: Mood normal. SKIN: detail exam as documented in skin assessment - Constitutional Vitals: Temp Pulse Resp BP Pulse Ox 98.3 F 77 20 136/77 100 04/18/21 06:41 04/18/21 06:41 04/18/21 06:41 04/18/21 06:41 04/18/21 06:41 General appearance: Present: no acute distress, well-nourished HEART Score - HEART Score Troponin: Troponin T < 0.010 ng/mL (0.00-0.029) 04/16/21 14:17 Results - Labs CBC & Chem 7: 04/18/21 04:29 04/18/21 04:29 Labs: Laboratory Last Values WBC 6.5 K/mm3 (4.5-11.0) 04/18/21 04:29 RBC 3.92 M/mm3 (3.65-5.03) 04/18/21 04:29 Hgb 11.3 gm/dl (10.1-14.3) 04/18/21 04:29 Hct 35.7 % (30.3-42.9) 04/18/21 04:29 MCV 91 fl (79-97) 04/18/21 04:29 MCH 29 pg (28-32) 04/18/21 04:29 MCHC 32 % (30-34) 04/18/21 04:29 RDW 15.4 % (13.2-15.2) H 04/18/21 04:29 Plt Count 238 K/mm3 (140-440) 04/18/21 04:29 Lymph % (Auto) 44.6 % (13.4-35.0) H 04/17/21 05:54 [place] % (Auto) 7.9 % (0.0-7.3) H 04/17/21 05:54 Eos % (Auto) 0.6 % (0.0-4.3) 04/17/21 05:54 Baso % (Auto) 0.2 % (0.0-1.8) 04/17/21 05:54 Lymph # (Auto) 2.8 K/mm3 (1.2-5.4) 04/17/21 05:54 [place] # (Auto) 0.5 K/mm3 (0.0-0.8) 04/17/21 05:54 Eos # (Auto) 0.0 K/mm3 (0.0-0.4) 04/17/21 05:54 Baso # (Auto) 0.0 K/mm3 (0.0-0.1) 04/17/21 05:54 Seg Neutrophils % 46.7 % (40.0-70.0) 04/17/21 05:54 Seg Neutrophils # 3.0 K/mm3 (1.8-7.7) 04/17/21 05:54 PT 12.8 Sec. (12.2-14.9) 04/16/21 14:17 INR 0.87 (0.87-1.13) 04/16/21 14:17 APTT 25.7 Sec. (24.2-36.6) 04/16/21 14:17 Thrombin Time 18.8 Sec. (15.1-19.6) 04/16/21 14:17 Sodium 142 mmol/L (137-145) 04/18/21 04:29 Potassium 3.8 mmol/L (3.6-5.0) 04/18/21 04:29 Chloride 102.4 mmol/L (98-107) 04/18/21 04:29 Carbon Dioxide 29 mmol/L (22-30) 04/18/21 04:29 Anion Gap 14 mmol/L 04/18/21 04:29 BUN 12 mg/dL (7-17) 04/18/21 04:29 Creatinine 0.7 mg/dL (0.6-1.2) 04/18/21 04:29 Estimated GFR > 60 ml/min 04/18/21 04:29 BUN/Creatinine Ratio 17 % 04/18/21 04:29 Glucose 178 mg/dL (65-100) H 04/18/21 04:29 POC Glucose 169 mg/dL (70-105) H 04/18/21 07:31 Calcium 9.4 mg/dL (8.4-10.2) 04/18/21 04:29 Phosphorus 4.20 mg/dL (2.5-4.5) 04/18/21 04:29 Magnesium 1.60 mg/dL (1.7-2.3) L 04/18/21 04:29 Total Bilirubin 0.50 mg/dL (0.1-1.2) 04/17/21 05:54 AST 22 units/L (5-40) 04/17/21 05:54 ALT 31 units/L (7-56) 04/17/21 05:54 Alkaline Phosphatase 59 units/L (35-129) 04/17/21 05:54 Total Creatine Kinase 93 units/L (30-135) 04/16/21 14:17 CK-MB (CK-2) 1.4 ng/mL (0.0-4.0) 04/16/21 14:17 CK-MB (CK-2) Rel Index 1.5 (0-4) 04/16/21 14:17 Troponin T < 0.010 ng/mL (0.00-0.029) 04/16/21 14:17 Total Protein 6.6 g/dL (6.3-8.2) 04/17/21 05:54 Albumin 3.8 g/dL (3.9-5) L 04/17/21 05:54 Albumin/Globulin Ratio 1.4 % 04/17/21 05:54 Triglycerides 74 mg/dL (2-149) 04/17/21 05:54 Cholesterol 133 mg/dL (50-199) 04/17/21 05:54 LDL Cholesterol Direct 68 mg/dL (50-130) 04/17/21 05:54 HDL Cholesterol 49 mg/dL (40-59) 04/17/21 05:54 Cholesterol/HDL Ratio 2.71 % 04/17/21 05:54 Urine Color Yellow (Yellow) 04/16/21 18:53 Urine Turbidity Slightly-cloudy (Clear) 04/16/21 18:53 Urine pH 6.0 (5.0-7.0) 04/16/21 18:53 Ur Specific [place] 1.036 (1.003-1.030) H 04/16/21 18:53 Urine Protein <15 mg/dl mg/dL (Negative) 04/16/21 18:53 Urine Glucose (UA) Neg mg/dL (Negative) 04/16/21 18:53 Urine Ketones Neg mg/dL (Negative) 04/16/21 18:53 Urine Blood Mod (Negative) 04/16/21 18:53 Urine Nitrite Neg (Negative) 04/16/21 18:53 Urine Bilirubin Neg (Negative) 04/16/21 18:53 Urine Urobilinogen 2.0 mg/dL (<2.0) 04/16/21 18:53 Ur Leukocyte Esterase Lg (Negative) 04/16/21 18:53 Urine WBC (Auto) 44.0 /HPF (0.0-6.0) H 04/16/21 18:53 Urine RBC (Auto) 10.0 /HPF (0.0-6.0) 04/16/21 18:53 U Epithel Cells (Auto) 2.0 /HPF (0-13.0) 04/16/21 18:53 Urine Bacteria (Auto) 2+ /HPF (Negative) 04/16/21 18:53 Urine Mucus Few /HPF 04/16/21 18:53 Urine Yeast (Budding) 1+ /HPF 04/16/21 18:53 Microbiology: Microbiology 04/16/21 18:53 Urine,Clean Catch Urine Culture - Preliminary Hernandez/IV: Voiding Method External Female Catheter Active Medications - Current Medications Current Medications: Generic Name Dose Route Start Last Admin Trade Name Freq PRN Reason Stop Dose Admin Acetaminophen 650 mg 04/16/21 23:04 Acetaminophen 325 Mg Tab PO Q4H PRN Pain MILD(1-3)/Fever >100.5/EDWARDS Amlodipine Besylate 10 mg 04/18/21 10:00 Amlodipine 10 Mg Tab PO DAILY [facility] Atorvastatin Calcium 40 mg 04/17/21 22:00 04/17/21 21:21 Atorvastatin 40 Mg Tab PO 40 mg QHS [facility] Administration Dextrose 50 ml 04/17/21 08:53 Dextrose 50% In Water (25gm) 50 Ml Syringe IV Q30MIN PRN Hypoglycemia Protocol Famotidine 40 mg 04/18/21 10:00 Famotidine 20 Mg Tab PO QDAY [facility] Hydralazine HCl 10 mg 04/17/21 16:24 Hydralazine 20 Mg/1 Ml Inj IV Q4HR PRN Hypertension Hydromorphone HCl 0.5 mg 04/16/21 23:04 Hydromorphone 1 Mg/1 Ml Inj IV Q3H PRN Pain , Severe (7-10) Insulin Glargine 10 units 04/18/21 08:00 Insulin Glargine 100 Units/Ml SUB-Q QAM@0800 [facility] Insulin Human Lispro 0 unit 04/17/21 11:30 04/17/21 21:32 Insulin Lispro 100 Unit/Ml SUB-Q 1 unit ACHS [facility] Administration Protocol Meclizine HCl 25 mg 04/16/21 22:57 Meclizine 25 Mg Tab PO Q8H PRN Vertigo Metoclopramide HCl 10 mg 04/16/21 23:04 Metoclopramide 10 Mg/2 Ml Inj IV Q6H PRN Nausea And Vomiting Ondansetron HCl 4 mg 04/16/21 23:04 Ondansetron 4 Mg/2 Ml Inj IV Q8H PRN Nausea And Vomiting Senna 17.2 mg 04/17/21 22:00 04/17/21 21:21 Sennosides 8.6 Mg Tab PO 17.2 mg QHS CHU Administration Sodium Chloride 10 ml 04/17/21 10:00 04/17/21 21:21 Sodium Chloride 0.9% 10 Ml Flush Syringe IV 10 ml BID CHU Administration Sodium Chloride 10 ml 04/16/21 23:06 Sodium Chloride 0.9% 10 Ml Flush Syringe IV PRN PRN LINE FLUSH Valsartan 320 mg 04/17/21 10:00 04/17/21 10:39 Valsartan 160mg Tab PO 320 mg QDAY CHU Administration
[2021-04-18] MEDS: INSULIN GLARGINE 100 UNITS/ML SUB-Q SCH (09:34)
[2021-04-18] MEDS: amLODIPine 10 MG TAB PO SCH (09:35)
[2021-04-18] MEDS: INSULIN LISPRO 100 UNIT/ML SUB-Q SCH ×4 (09:35→21:47)
[2021-04-18] MEDS: VALSARTAN 160MG TAB PO SCH (09:35)
[2021-04-18] MEDS: FAMOTIDINE 20 MG TAB PO SCH (09:35)
--- NOTE | 2021-04-18 13:03 | Progress Note ---
Assessment and Plan Assessment and Plan - Patient Problems #Hx of CVA with residual right side weakness old since last December -presented with increase slurred speech -CT brain is suggestive of hemorrhagic transformation right frontoparietal region and old left occipital CVA -CTA brain and neck is remarkable for calcified ICA stenosis<30% -Neurosurgery consult -MRI brain is consistent with hemorrhagic transformation no acute CVA is noted??D>D embolic event , HTN ? amyloid -restart ASA 81 mg daily -Echo is pending -ST/PT evaluate -cardiac monitering r/o AF # IDDM (insulin dependent diabetes mellitus) -Insulin coverage for now -Check A1c # Hyperlipidemia -on lipitor -LDL is pending # Hypertension -Continue antihypertensives and adjust medications as necessary -BP<150/80 # DVT prophylaxis -On SCDs and GI prophylaxis -No heparin because of hemorrhagic conversion PLAN 1-0K to restart ASA 81 mg daily 2- Lipitor 40 mg daily 3- better control BP<150/80 4- consider MCOT on discharge ? AF 5- PT therapy 6- check echo with bubble study will follow Subjective Date of service: 04/18/21 Principal diagnosis: slurred speech and hx of right side weakness remote Interval history: status is unchanged she is sob on cpap today right side weakness unchanged difficult to assess speech MRI is noted evolving right fronto parietal hemorrhage and multiple remote CVA BP today 165/85 NSR LDL#68 Objective - Vital Sign Vital Signs - 12hr 04/18/21 04/18/21 04/18/21 01:01 01:02 02:00 Temperature Pulse Rate 77 77 77 Respiratory 14 18 14 Rate Blood Pressure 159/88 124/70 164/89 O2 Sat by Pulse 100 100 100 Oximetry 04/18/21 04/18/21 04/18/21 03:00 03:42 04:00 Temperature 98.5 F Pulse Rate 73 75 Respiratory 16 19 Rate Blood Pressure 148/82 165/84 O2 Sat by Pulse 100 100 Oximetry 04/18/21 04/18/21 04/18/21 06:41 08:00 11:14 Temperature 98.3 F 98.1 F Pulse Rate 77 79 Respiratory 20 17 Rate Blood Pressure 136/77 116/72 O2 Sat by Pulse 100 100 100 Oximetry - General Apperance Constitutional: comfortable - EENT EENT: PERRL, mucous membranes moist - Respiratory Respiratory: chest non-tender, lungs clear, rhonchi - Cardiovascular Cardiovascular: regular rate, normal S1, normal S2 Extremities: no peripheral edema bilat, no clubbing, cyanosis - Gastrointestinal Gastrointestinal: normoactive bowel sounds - Integumentary Integumentary: normal - Neurologic Cranial nerve examination: PERRL, EOMI, facial droop Speech examination: intact, other (slurred ) Detailed motor examination: other (right side 3/5 unchanged ) Motor examination - right side: 15: biceps, triceps, wrist flexion, wrist extension, catalogue compiler, hip flexors, knee extensors, dorsiflexion, toe extension (EHL), plantarflexion - Laboratory Findings CBC and BMP: 04/18/21 04:29 04/18/21 04:29 Abnormal Lab Findings: Abnormal Labs 04/16/21 04/16/21 04/16/21 13:43 14:17 14:17 RDW 15.7 H Lymph % (Auto) [place] % (Auto) 7.7 H Glucose 124 H POC Glucose 143 H Magnesium Albumin 3.7 L Ur Specific [place] Urine WBC (Auto) 04/16/21 04/16/21 04/17/21 18:53 20:47 05:54 RDW 15.5 H Lymph % (Auto) 44.6 H [place] % (Auto) 7.9 H Glucose POC Glucose 113 H Magnesium Albumin Ur Specific [place] 1.036 H Urine WBC (Auto) 44.0 H 04/17/21 04/17/21 04/17/21 05:54 11:45 17:42 RDW Lymph % (Auto) [place] % (Auto) Glucose 112 H POC Glucose 140 H 168 H Magnesium Albumin 3.8 L Ur Specific [place] Urine WBC (Auto) 04/17/21 04/18/21 04/18/21 21:30 04:29 04:29 RDW 15.4 H Lymph % (Auto) [place] % (Auto) Glucose 178 H POC Glucose 175 H Magnesium 1.60 L Albumin Ur Specific [place] Urine WBC (Auto) 04/18/21 04/18/21 07:31 11:15 RDW Lymph % (Auto) [place] % (Auto) Glucose POC Glucose 169 H 218 H Magnesium Albumin Ur Specific [place] Urine WBC (Auto)
[2021-04-18] MEDS: ASPIRIN EC 81 MG TAB PO SCH (14:46)
[2021-04-18] MEDS: SENNOSIDES 8.6 MG TAB PO SCH (21:47)
[2021-04-19] MEDS: INSULIN GLARGINE 100 UNITS/ML SUB-Q SCH (09:02)
[2021-04-19] MEDS: INSULIN LISPRO 100 UNIT/ML SUB-Q SCH (09:03)
[2021-04-19] MEDS: ASPIRIN EC 81 MG TAB PO SCH (10:51)
[2021-04-19] MEDS: FAMOTIDINE 20 MG TAB PO SCH (10:51)
[2021-04-19] MEDS: VALSARTAN 160MG TAB PO SCH (10:51)
[2021-04-19] MEDS: amLODIPine 10 MG TAB PO SCH (10:52)
--- NOTE | 2021-04-19 11:34 | Discharge Summary ---
Providers - Providers Date of Admission: 04/16/21 15:09 Date of discharge: 04/19/21 Attending physician: KIM GHOSH MD 04/16/21 14:36 Consult to Physician [CONS] Urgent Comment: Consulting Provider: LAURITA HARPER II Physician Instructions: Reason For Exam: cva w hemorrgahic transformation 04/16/21 23:06 Occupational Therapy Evaluate and Treat [CONS] Routine Comment: Reason For Exam: Neuro deficits Physical Therapy Evaluation and Treat [CONS] Routine Comment: Reason For Exam: Neuro deficits 04/16/21 23:08 Consult to Physician [CONS] Routine Comment: Consulting Provider: GUDELIA TRENT Physician Instructions: Reason For Exam: Acute CVA Hospitalization Reason for admission: slurred speech Condition: Critical Hospital course: History of present illness: 56-year-old female with history of hypertension, insulin-dependent diabetes and cerebrovascular accident in December with residual right-sided hemiplegia comes in for slurred speech since last night. Patient was diagnosed with a acute CVA in December 2020 confirmed by MRI. Patient is says that she has slurred speech since last night which may be a new cerebrovascular accident. She has chronic right-sided weakness since last cerebrovascular accident in December. Patient is in rehab. Patient able to answer questions appropriately. Alert and oriented. Gives a good history. 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 Work-up in the emergency department included a CT head which showed possible developing infarct along the right frontoparietal region and evolutionary changes in infarct from December, microvascular angiopathy, CTA head showed findings concerning for evolving hemorrhagic infarct in the right frontoparietal junction and CTA neck showed atherosclerotic calcification involving the right carotid bifurcation and proximal right internal carotid artery. Neurosurgery, neurology and [facility] were consulted. Patient was admitted to the hospital service for acute hemorrhagic CVA. 04/17: Patient had MRI brain today, remains hemodynamically stable and will be transferred to telemetry. She received 2 mg of Ativan IV x1 for MRI scan due to claustrophobia. 04/18: pending NSG eval. Neurology recommends ECHO with bubble study. Added amlodipine 10 mg for better BP control. PT eval noted. Patient can return to [facility] once medically cleared. 04/19: d/w Dr. Harper. No surgical intervention. Discharge with OP recommendation to obtain ECHO. Patient to be sent home on ASA 81 mg po daily per neurology recommendations. We will also be prescribing amlodipine 10 mg p.o. daily and atorvastatin 40 mg p.o. nightly. Patient advised to resume home medications as outlined in the medical reconciliation. Pt discharged to [facility]. Neuro: Acute hemorrhagic CVA, h/o CVA -Neurology and neurosurgery consulted, appreciate recommendations -Admitted to ICU for hourly neuro checks -Repeat MRI brain pending -PT/OT consult -Hold aspirin per neurology until MRI is completed -Echocardiogram pending -ST/PT consult -Maintain normothermia and avoid hypoglycemia -Systolic blood pressure goal of less than 160 -Home amlodipine and valsartan started for blood pressure control -Blood pressure monitor per protocol -Lipid panel pending -Lipitor 40 mg nightly restarted -Aspiration/fall precautions -prn antivert, PO oxycodone Cardio: h/o HTN, HLD -Restarted home amlodipine and added valsartan -Per neurology blood pressure goal less than 150/80 -Blood pressure monitor per protocol -Echo pending Resp: NAD, ? JULIA -CPAP q hs -Desaturation with sleeping -Patient states that she was CPAP at home -Pulmonary hygiene -Supplemental oxygen as needed -SPO2 monitoring GI: MO -CC diet -24 hours 1450 -BR: Senna -PPI : NAD -Trend BMP -Intervene as needed Endo: h/o DM -Accu-Cheks every 6 -SSI -Decrease home Levemir -Hold home Actos and Metformin -Avoid hypoglycemia -UC pending ID: NAD -Monitor WBC and fever trend Heme: h/o ? PE/DVT -SCDs to BLE while in bed -hold chemical anticougulaiton in setting of hemorrhagic CVA or until cleared by neurosurgery/neurology Disposition: [facility] Final Discharge Diagnosis (Prints w/discharge instructions): hemorrhagic stroke Time spent for discharge: 35 Core Measure Documentation - Palliative Care Palliative Care/ Comfort Measures: Not Applicable - Core Measures Any of the following diagnoses?: stroke - Stroke Discharge Requirements Statin for LDL = or >70 mg/dl on DC: Yes Anticoag for atrial fib/atrial flutter: Not Applicable Antithrombotic for ischemic stroke: Yes Exam - Physical Exam Narrative exam: Physical Exam: VITAL SIGNS: Reviewed. GENERAL: The patient appears normally developed, Vital signs as documented. HEAD: No signs of head trauma. EYES: Pupils are equal. Extraocular motions intact. EARS: Hearing grossly intact. MOUTH: Oropharynx is normal. NECK: No adenopathy, no JVD. CHEST: Chest with clear breath sounds bilaterally. No wheezes, rales, or rhonchi. CARDIAC: Regular rate and rhythm. S1 and S2, without murmurs, gallops, or rubs. VASCULAR: No Edema. Peripheral pulses normal and equal in all extremities. ABDOMEN: Soft, non tender and non distended. No rebound or guarding, and no masses palpated. Bowel Sounds normal. MUSCULOSKELETAL: Good range of motion of all major joints. Extremities without clubbing, cyanosis or edema. NEUROLOGIC EXAM: Alert and oriented x 4. no focal sensory or strength deficits. PSYCHIATRIC: Mood normal. SKIN: detail exam as documented in skin assessment - Constitutional Vitals: Temp Pulse Resp BP Pulse Ox 98.9 F 82 20 120/69 100 04/19/21 10:50 04/19/21 10:50 04/19/21 10:50 04/19/21 10:50 04/19/21 10:50 Plan Follow up with: [facility] [Other] - 3-5 Days
--- NOTE | 2021-04-19 12:36 | Event Note ---
Date: 04/19/21 Repeat echo cancelled. Patient had recent echo 01/21/21: normal LV systolic function, EF 55-60%, negative saline bubble study.
[2021-04-19 16:10] VITALS: BP 138/75
== END 2021-04-19 18:12 | DRG 65 ==
LOC: ED 13:29 → CC1 15:09 → 3A 04-18 06:24
PROVIDERS: ADMIT Internal Medicine; ATTEND Internal Medicine
DX: I61.1 Nontraumatic intracerebral hemorrhage in hemisphere, cortical (principal); I69.351 Hemiplegia and hemiparesis following cerebral infarction affecting right dominant side; E66.2 Morbid (severe) obesity with alveolar hypoventilation; Z68.41 Body mass index [BMI] 40.0-44.9, adult; Z20.822 Contact with and (suspected) exposure to COVID-19; E78.2 Mixed hyperlipidemia; I10 Essential (primary) hypertension; E78.00 Pure hypercholesterolemia, unspecified; Z86.711 Personal history of pulmonary embolism; Z79.82 Long term (current) use of aspirin; Z79.4 Long term (current) use of insulin; Z88.8 Allergy status to other drugs, medicaments and biological substances
CPT/HCPCS: 36415; 70450; 70496; 70498; 70551; 71045; 80048; 80053; 80061; 81001; 82550; 82553; 82962; 83735; 84100; 84484; 85025; 85027; 85610; 85670; 85730; 87086; 93005; 94660; 94760; G0378; J3490; Q9967; J1815; J2060; U0003

== ENCOUNTER 2021-06-19 15:57 | Observation (INO) | payer MEDICARE ==
[2021-06-19] MEDS ORDERED: ONDANSETRON 4 MG/2 ML INJ IV ONE (17:27)
[2021-06-19] MEDS ORDERED: SODIUM CHLORIDE 0.9% 1000 ML 1,000 ML IV ONE (17:27)
--- NOTE | 2021-06-19 17:49 | Emergency Department Report ---
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 intake, nausea, vomiting, and possible constipation. Patient states she has not had a bowel movement in 1 month. The half-way has been providing intermittent laxative including milk of magnesium without success. For the past 1 week patient has had nausea induced by the smell of the half-way food and intermittent vomiting with p.o. intake. She currently comes to the hospital complaining of moderate abdominal pain due to hunger which is worse with palpation. She denies previous abdominal surgeries or fever Severity scale (0 -10): 0 - Related Data Home Medications Medication Instructions Recorded Confirmed Last Taken Insulin Aspart (Nf) [NovoLOG 100 0 unit SQ AC 10/09/13 04/17/21 01/18/21 UNITS/ML VIAL] Metformin HCl [Glucophage] 1,000 mg PO BID 10/09/13 04/17/21 01/18/21 Pioglitazone HCl [Actos] 15 mg PO QDAY 10/09/13 04/17/21 01/18/21 Valsartan/Hydrochlorothiazide 1 each PO QDAY 10/09/13 04/17/21 01/18/21 [Valsartan-Hctz 320-25 mg] Melatonin [Melatonin 5MG TAB] 5 mg PO Q24H PRN 04/17/21 04/17/21 Unknown Sertraline [Zoloft] 25 mg PO QDAY 04/17/21 04/17/21 Unknown Previous Rx's Medication Instructions Recorded Last Taken Type Aspirin EC [Halfprin EC] 81 mg PO QDAY 30 Days #30 tablet 04/19/21 Unknown Rx AtorvaSTATin [Lipitor] 40 mg PO QHS 30 Days #30 tablet 04/19/21 Unknown Rx amLODIPine 10 mg PO DAILY 30 Days #30 tablet 04/19/21 Unknown Rx Allergies Allergy/AdvReac Type Severity Reaction Status Date / Time acetaminophen [From Lortab] AdvReac Unknown Verified 06/19/21 20:18 hydrocodone bitartrate AdvReac Unknown Verified 06/19/21 20:18 [From Lortab] ED Review of Systems ROS: Stated complaint: NAUSEA/VOMITING/NO APPETITE Other details as noted in HPI Comment: All other systems reviewed and negative ED Past Medical Hx - Past Medical History Previous Medical History?: Yes Hx Hypertension: Yes Hx CVA: No Hx Heart Attack/AMI: No Hx Congestive Heart Failure: No Hx Diabetes: Yes Hx Deep Vein Thrombosis: Yes Hx Pulmonary Embolism: Yes Hx GERD: No Hx Liver Disease: No Hx Renal Disease: No Hx Sickle Cell Disease: No Hx Arthritis: No Hx Headaches / Migraines: No Hx Seizures: No Hx Kidney Stones: No Hx Psychiatric Treatment: No Hx Asthma: No Hx COPD: No Hx Tuberculosis: No Hx Dementia: No Hx HIV: No Additional medical history: High cholesterol - Surgical History Additional Surgical History: Lining of uterus removed - Social History Smoking Status: Never Smoker Substance Use Type: None - Medications Home Medications: Home Medications Medication Instructions Recorded Confirmed Last Taken Type Insulin Aspart (Nf) [NovoLOG 100 0 unit SQ AC 10/09/13 04/17/21 01/18/21 History UNITS/ML VIAL] Metformin HCl [Glucophage] 1,000 mg PO BID 10/09/13 04/17/21 01/18/21 History Pioglitazone HCl [Actos] 15 mg PO QDAY 10/09/13 04/17/21 01/18/21 History Valsartan/Hydrochlorothiazide 1 each PO QDAY 10/09/13 04/17/21 01/18/21 History [Valsartan-Hctz 320-25 mg] Melatonin [Melatonin 5MG TAB] 5 mg PO Q24H PRN 04/17/21 04/17/21 Unknown History Sertraline [Zoloft] 25 mg PO QDAY 04/17/21 04/17/21 Unknown History Aspirin EC [Halfprin EC] 81 mg PO QDAY 30 Days #30 tablet 04/19/21 Unknown Rx AtorvaSTATin [Lipitor] 40 mg PO QHS 30 Days #30 tablet 04/19/21 Unknown Rx amLODIPine 10 mg PO DAILY 30 Days #30 tablet 04/19/21 Unknown Rx ED Physical Exam - General Limitations: No Limitations - Other Other exam information: General: No acute distress Head: Atraumatic Eyes: normal appearance ENT: Moist mucous membranes Neck: Normal appearance, no midline tenderness Chest: Clear to auscultation bilaterally CV: Regular rate and rhythm Abdomen: Soft, normal bowel sounds, mid and right lower abdominal tenderness to palpation, nondistended, no rebound or guarding Back: Normal inspection Extremity: Normal inspection, full range of motion Neuro: Alert O x 3, no facial asymmetry, speech clear, right sided hemiplegia Psych: Appropriate behavior Skin: No rash ED Course Vital Signs 06/19/21 06/19/21 16:22 21:08 Temperature 98.1 F Pulse Rate 83 Respiratory 18 Rate Blood Pressure 106/70 [Left] O2 Sat by Pulse 100 98 Oximetry ED Medical Decision Making - Lab Data Result diagrams: 06/19/21 18:49 06/19/21 18:49 Lab Results 06/19/21 06/19/21 06/19/21 Range/Units 18:49 18:49 19:31 WBC 8.0 (4.5-11.0) K/mm3 RBC 3.35 L (3.65-5.03) M/mm3 Hgb 9.9 L (10.1-14.3) gm/dl Hct 31.9 (30.3-42.9) % MCV 95 (79-97) fl MCH 29 (28-32) pg MCHC 31 (30-34) % RDW 15.1 (13.2-15.2) % Plt Count 289 (140-440) K/mm3 Lymph % (Auto) 28.2 (13.4-35.0) % [place] % (Auto) 8.3 H (0.0-7.3) % Eos % (Auto) 0.2 (0.0-4.3) % Baso % (Auto) 0.2 (0.0-1.8) % Lymph # (Auto) 2.3 (1.2-5.4) K/mm3 [place] # (Auto) 0.7 (0.0-0.8) K/mm3 Eos # (Auto) 0.0 (0.0-0.4) K/mm3 Baso # (Auto) 0.0 (0.0-0.1) K/mm3 Seg Neutrophils % 63.1 (40.0-70.0) % Seg Neutrophils # 5.1 (1.8-7.7) K/mm3 Sodium 137 (137-145) mmol/L Potassium 4.5 (3.6-5.0) mmol/L Chloride 98.2 (98-107) mmol/L Carbon Dioxide 24 (22-30) mmol/L Anion Gap 19 mmol/L BUN 61 H (7-17) mg/dL Creatinine 2.0 H (0.6-1.2) mg/dL Estimated GFR 31 ml/min BUN/Creatinine Ratio 31 % Glucose 95 (65-100) mg/dL POC Glucose 95 (70-105) mg/dL Calcium 9.1 (8.4-10.2) mg/dL Total Bilirubin 0.50 (0.1-1.2) mg/dL AST 20 (5-40) units/L ALT 14 (7-56) units/L Alkaline Phosphatase 65 (35-129) units/L Troponin T 0.060 H (0.00-0.029) ng/mL Total Protein 7.2 (6.3-8.2) g/dL Albumin 4.0 (3.9-5) g/dL Albumin/Globulin Ratio 1.3 % Triglycerides 116 (2-149) mg/dL Cholesterol 122 (50-199) mg/dL LDL Cholesterol Direct 61 (50-130) mg/dL HDL Cholesterol 44 (40-59) mg/dL Cholesterol/HDL Ratio 2.77 % Lipase 27 (13-60) units/L - EKG Data -: EKG Interpreted by [facility] EKG shows normal: sinus rhythm, ST-T waves (septal t inv, no stemi) Rate: normal - Radiology Data Radiology results: report reviewed CT ABDOMEN AND PELVIS WITHOUT CONTRAST INDICATION / CLINICAL INFORMATION: Nausea and vomiting, constipation, acute renal insufficiency. TECHNIQUE: Axial CT images were obtained through the abdomen and pelvis without IV contrast. All CT scans at this location are performed using CT dose reduction for ALARA by means of automated exposure control. COMPARISON: None available. FINDINGS: LOWER CHEST: No significant abnormality. LIVER: No significant abnormality. GALLBLADDER: No significant abnormality. BILE DUCTS: No significant abnormality. PANCREAS: No significant abnormality. SPLEEN: No significant abnormality. ADRENALS: No significant abnormality. RIGHT KIDNEY/URETER: No significant abnormality. LEFT KIDNEY/URETER: A mildly calcified posterior midpole left renal cyst measures up to 4 cm. No other significant abnormality. STOMACH/SMALL BOWEL: No significant abnormality. COLON: The colon contains a large amount of stool without other acute findings. APPENDIX: No significant abnormality. PERITONEUM: No free fluid. No free air. No fluid collection. LYMPH NODES: No significant adenopathy. VASCULATURE: Normal caliber of the aorta with moderate generalized atherosclerosis. URINARY BLADDER: No significant abnormality. REPRODUCTIVE ORGANS: No significant abnormality. ADDITIONAL FINDINGS: None. BONES: No acute findings. The bones are demineralized with moderate degenerativ e changes throughout the spine and pelvis. IMPRESSION: 1. No acute findings. 2. Findings compatible with constipation. 3. Additional findings as above. - Medical Decision Making 56-year-old female presents to the hospital abdominal pain, nausea and vomiting. CAT scan significant only for constipation. Lab suggestive of dehydration consistent with patient's history of decreased p.o. intake and nausea vomiting. Patient treated in the ED with IV fluids, Zofran and lactulose. Mild troponin elevation noted however, patient does have insufficiency. No signs of ST elevation DE on EKG. Repeat troponin case discussed with hospitalist for admission Critical Care Time: No Critical care attestation.: If time is entered above; I have spent that time in minutes in the direct care of this critically ill patient, excluding procedure time. ED Disposition Clinical Impression: Acute renal insufficiency, Dehydration, Constipation Disposition: ADMITTED INPATIENT Is pt being admited?: Yes Condition: Stable Time of Disposition: 22:00
[2021-06-19 19:41] LABS: Calcium 9.1 mg/dL (8.4-10.2)
[2021-06-19 19:46] LABS: Basophils % (Auto) 0.2 % (0.0-1.8); Eosinophils % (Auto) 0.2 % (0.0-4.3); Hematocrit 31.9 % (30.3-42.9); Hemoglobin 9.9 gm/dl (10.1-14.3); Lymphocytes # (Auto) 2.3 K/mm3 (1.2-5.4); Lymphocytes % (Auto) 28.2 % (13.4-35.0); Mean Corpuscular HGB Conc 31 % (30-34); Mean Corpuscular Volume 95 fl (79-97); Monocytes # (Auto) 0.7 K/mm3 (0.0-0.8); Monocytes % (Auto) 8.3 % (0.0-7.3); Platelet Count 289 K/mm3 (140-440); Red Blood Count 3.35 M/mm3 (3.65-5.03); Red Cell Distribution Width 15.1 % (13.2-15.2)
[2021-06-19 20:00] LABS: Chol/HDL Ratio 2.77 %
[2021-06-19] MEDS ORDERED: ONDANSETRON 4 MG/2 ML INJ ONE (20:11)
--- NOTE | 2021-06-19 20:58 | Cat Scan Report ---
CT ABDOMEN AND PELVIS WITHOUT CONTRAST INDICATION / CLINICAL INFORMATION: Nausea and vomiting, constipation, acute renal insufficiency. TECHNIQUE: Axial CT images were obtained through the abdomen and pelvis without IV contrast. All CT scans at [facility] location are performed using CT dose reduction for ALARA by means of automated exposure control. COMPARISON: None available. FINDINGS: LOWER CHEST: No significant abnormality. LIVER: No significant abnormality. GALLBLADDER: No significant abnormality. BILE DUCTS: No significant abnormality. PANCREAS: No significant abnormality. SPLEEN: No significant abnormality. ADRENALS: No significant abnormality. RIGHT KIDNEY/URETER: No significant abnormality. LEFT KIDNEY/URETER: A mildly calcified posterior midpole left renal cyst measures up to 4 cm. No othe r significant abnormality. STOMACH/SMALL BOWEL: No significant abnormality. COLON: The colon contains a large amount of stool without other acute findings. APPENDIX: No significant abnormality. PERITONEUM: No free fluid. No free air. No fluid collection. LYMPH NODES: No significant adenopathy. VASCULATURE: Normal caliber of the aorta with moderate generalized atherosclerosis. URINARY BLADDER: No significant abnormality. REPRODUCTIVE ORGANS: No significant abnormality. ADDITIONAL FINDINGS: None. BONES: No acute findings. The bones are demineralized with moderate degenerative changes throughout t he spine and pelvis. IMPRESSION: 1. No acute findings. 2. Findings compatible with constipation. 3. Additional findings as above. Signer Name: Layo Bright MD Signed: 06/19/2021 8:54 PM Workstation Name: [id number]
[2021-06-19] MEDS ORDERED: LACTULOSE 20 GM/30 ML ORAL LIQD PO ONE (21:29)
[2021-06-19] MEDS ORDERED: MORPHINE 2 MG/1 ML INJ IV PRN (22:25)
[2021-06-19] MEDS ORDERED: ONDANSETRON 4 MG/2 ML INJ IV PRN (22:25)
[2021-06-19] MEDS ORDERED: MAGNESIUM HYDROXIDE (MOM) ORAL LIQD UDC PO PRN (22:25)
[2021-06-19] MEDS ORDERED: DEXTROSE 50% IN WATER (25GM) 50 ML SYRINGE IV PRN (22:25)
[2021-06-19] MEDS ORDERED: ACETAMINOPHEN 325 MG TAB PO PRN (22:25)
[2021-06-19] MEDS ORDERED: MORPHINE 4 MG/1 ML INJ IV PRN (22:25)
[2021-06-19] MEDS ORDERED: SODIUM CHLORIDE 0.9% 1000 ML 1,000 ML IV SCH (22:30)
--- NOTE | 2021-06-19 22:34 | History and Physical Report ---
History of Present Illness Date of examination: 06/19/21 Date of admission: 06/19/2021 Chief complaint: Nausea and Vomiting Constipation History of present illness: 56-year-old female resident of a care home with known history of diabetes mellitus, hypertension, CVA in December 2020 with right-sided hemiplegia presenting to the emergency room today complaining of nausea and vomiting, decreased oral intake and constipation. Patient states she has not had a bowel movement in about a month. She has been taking some laxative including milk of magnesium without any significant improvement. She has had some mild abdominal discomfort. Patient denies any fever or chills, no chest pain or shortness of breath, no headache or dizziness and no diaphoresis. Patient denies any hematuria or dysuria. Work-up in the emergency room today, significant findings were that of BUN of 61 and creatinine of 2.0. Patient had a slight elevation of troponin at 0.060. CT of the abdomen pelvis reveals findings compatible with constipation. Past History Past Medical History: diabetes, DVT, hypertension, hyperlipidemia, pulmonary embolism, stroke Past Surgical History: hysterectomy Social history: no significant social history Family history: no significant family history Medications and Allergies Allergies Allergy/AdvReac Type Severity Reaction Status Date / Time acetaminophen [From Lortab] AdvReac Unknown Verified 06/19/21 20:18 hydrocodone bitartrate AdvReac Unknown Verified 06/19/21 20:18 [From Lortab] Home Medications Medication Instructions Recorded Confirmed Last Taken Type Insulin Aspart (Nf) [NovoLOG 100 0 unit SQ AC 10/09/13 04/17/21 01/18/21 History UNITS/ML VIAL] Metformin HCl [Glucophage] 1,000 mg PO BID 10/09/13 04/17/21 01/18/21 History Pioglitazone HCl [Actos] 15 mg PO QDAY 10/09/13 04/17/21 01/18/21 History Valsartan/Hydrochlorothiazide 1 each PO QDAY 10/09/13 04/17/21 01/18/21 History [Valsartan-Hctz 320-25 mg] Melatonin [Melatonin 5MG TAB] 5 mg PO Q24H PRN 04/17/21 04/17/21 Unknown History Sertraline [Zoloft] 25 mg PO QDAY 04/17/21 04/17/21 Unknown History Aspirin EC [Halfprin EC] 81 mg PO QDAY 30 Days #30 tablet 04/19/21 Unknown Rx AtorvaSTATin [Lipitor] 40 mg PO QHS 30 Days #30 tablet 04/19/21 Unknown Rx amLODIPine 10 mg PO DAILY 30 Days #30 tablet 04/19/21 Unknown Rx Active Meds: Active Medications Acetaminophen (Acetaminophen 325 Mg Tab) 650 mg PO Q4H PRN PRN Reason: Pain MILD(1-3)/Fever >100.5/EDWARDS Ondansetron HCl (Ondansetron 4 Mg/2 Ml Inj) 4 mg IV Q8H PRN PRN Reason: Nausea And Vomiting Review of Systems Constitutional: poor appetite, no fever, no chills Ears, nose, mouth and throat: no nasal congestion, no sore throat Cardiovascular: no chest pain, no palpitations Respiratory: no cough, no shortness of breath Gastrointestinal: abdominal pain, nausea, vomiting, constipation Genitourinary Female: no pelvic pain, no flank pain, no dysuria, no hematuria Musculoskeletal: no neck pain, no low back pain Integumentary: no rash, no pruritis Neurological: no headaches, no confusion Psychiatric: no anxiety, no depression Endocrine: no polydipsia, no polyuria, no nocturia Exam - Constitutional Vitals: Temp Pulse Resp BP Pulse Ox 98.1 F 83 18 106/70 98 06/19/21 16:22 06/19/21 16:22 06/19/21 16:22 06/19/21 16:22 06/19/21 21:08 General appearance: Present: no acute distress, well-nourished, obese - EENT Eyes: Present: PERRL, EOM intact. Absent: scleral icterus ENT: hearing intact, clear oral mucosa, dentition normal - Neck Neck: Present: supple, normal ROM - Respiratory Respiratory effort: normal Respiratory: bilateral: CTA - Cardiovascular Rhythm: regular Heart Sounds: Present: S1 & S2. Absent: gallop, systolic murmur, diastolic murmur, rub, click - Extremities Extremities: no ischemia, pulses intact, pulses symmetrical, No edema, normal temperature, normal color, Full ROM Peripheral Pulses: within normal limits - Abdominal General gastrointestinal: Present: soft, non-tender, non-distended, normal bowel sounds. Absent: mass - Integumentary Integumentary: Present: clear, warm, dry, normal turgor. Absent: rash - Musculoskeletal Musculoskeletal: strength equal bilaterally, right sided weakness - Psychiatric Psychiatric: appropriate mood/affect, intact judgment & insight, memory intact, cooperative - Neurologic Neurologic: CNII-XII intact HEART Score - HEART Score Troponin: Troponin T 0.053 ng/mL (0.00-0.029) H 06/19/21 21:25 Results - Labs CBC & Chem 7: 06/19/21 18:49 06/19/21 18:49 Labs: Abnormal lab results 06/19/21 06/19/21 06/19/21 Range/Units 18:49 18:49 21:25 RBC 3.35 L (3.65-5.03) M/mm3 Hgb 9.9 L (10.1-14.3) gm/dl [place] % (Auto) 8.3 H (0.0-7.3) % BUN 61 H (7-17) mg/dL Creatinine 2.0 H (0.6-1.2) mg/dL Troponin T 0.060 H 0.053 H (0.00-0.029) ng/mL Assessment and Plan - Patient Problems (1) Acute renal insufficiency Current Visit: Yes Status: Acute Plan to address problem: Patient be placed on IV fluid. Will monitor BUN and creatinine. Creatinine was 0.7 in March 2021. We will request nephrology evaluation and recommendations. (2) Constipation Current Visit: Yes Status: Acute Plan to address problem: Patient will be placed on laxatives and enema. May request GI evaluation if needed. (3) Dehydration Current Visit: Yes Status: Acute Plan to address problem: Possibly secondary to decreased oral intake. Will encourage generous fluid intake. We will continue IV fluid and monitor chemistry. (4) CVA (cerebral vascular accident) Current Visit: No Status: Acute Plan to address problem: Patient has right hemiplegia. Appears stable (5) Diabetes mellitus Current Visit: No Status: Chronic Plan to address problem: Will monitor Accu-Cheks closely. (6) Hyperlipidemia Current Visit: No Status: Chronic Plan to address problem: We will resume routine home medications and monitor lipid profile (7) Hypertension Current Visit: No Status: Suspected Plan to address problem: Resume routine home medications and monitor vital signs closely. (8) Sleep apnea Current Visit: No Status: Chronic (9) DVT prophylaxis Current Visit: No Status: Acute Plan to address problem: Will place patient on subcutaneous heparin. (10) Full code status Current Visit: Yes Status: Acute Plan to address problem: Patient is full code
[2021-06-20] MEDS ORDERED: INSULIN LISPRO 100 UNIT/ML SUB-Q SCH ×2 (07:30→11:30)
[2021-06-20] MEDS ORDERED: FLEET ENEMA PR SCH (08:00)
--- NOTE | 2021-06-20 08:59 | Consultation ---
History of Present Illness - Reason for Consult Consult date: 06/20/21 acute renal failure - History of Present Illness Mr. Garvey is a 56yo female with past medical history significan for hype rtension, type II diabetes and CVA w/ residual right side hemiplegia in December 2020 who presents with complaints of abdominal pain, nausea/vomiting, poor po intake x 1 week. Patient states she has not had a bowel movement in 1 month despite intermittent laxative including milk of magnesium without success. Past History Past Medical History: diabetes, DVT, hypertension, hyperlipidemia, pulmonary embolism, stroke Past Surgical History: hysterectomy Social history: no significant social history Family history: no significant family history Medications and Allergies Allergies Allergy/AdvReac Type Severity Reaction Status Date / Time acetaminophen [From Lortab] AdvReac Unknown Verified 06/19/21 20:18 hydrocodone bitartrate AdvReac Unknown Verified 06/19/21 20:18 [From Lortab] Home Medications Medication Instructions Recorded Confirmed Last Taken Type Insulin Aspart (Nf) [NovoLOG 100 0 unit SQ AC 10/09/13 04/17/21 01/18/21 History UNITS/ML VIAL] Melatonin [Melatonin 5MG TAB] 5 mg PO Q24H PRN 04/17/21 04/17/21 Unknown History Sertraline [Zoloft] 25 mg PO QDAY 04/17/21 04/17/21 Unknown History Aspirin EC [Halfprin EC] 81 mg PO QDAY 30 Days #30 tablet 04/19/21 Unknown Rx AtorvaSTATin [Lipitor] 40 mg PO QHS 30 Days #30 tablet 04/19/21 Unknown Rx Active Meds: Active Medications Acetaminophen (Acetaminophen 325 Mg Tab) 650 mg PO Q4H PRN PRN Reason: Pain MILD(1-3)/Fever >100.5/EDWARDS Dextrose (Dextrose 50% In Water (25gm) 50 Ml Syringe) 50 ml IV Q30MIN PRN; Protocol PRN Reason: Hypoglycemia Heparin Sodium (Porcine) (Heparin 5,000 Unit/1 Ml Vial) 5,000 unit SUB-Q Q8HR CHU Sodium Chloride (Nacl 0.9% 1000 Ml) 1,000 mls @ 125 mls/hr IV DIRECT CHU Insulin Human Lispro (Insulin Lispro 100 Unit/Ml) 0 unit SUB-Q ACHS CHU; Protocol Lactulose (Lactulose 20 Gm/30 Ml Oral Liqd) 20 gm PO QDAY CHU Magnesium Hydroxide (Magnesium Hydroxide (Mom) Oral Liqd Udc) 30 ml PO Q4H PRN PRN Reason: Constipation Morphine Sulfate (Morphine 2 Mg/1 Ml Inj) 2 mg IV Q4H PRN PRN Reason: Pain, Moderate (4-6) Morphine Sulfate (Morphine 4 Mg/1 Ml Inj) 4 mg IV Q4H PRN PRN Reason: Pain , Severe (7-10) Ondansetron HCl (Ondansetron 4 Mg/2 Ml Inj) 4 mg IV Q8H PRN PRN Reason: Nausea And Vomiting Sodium Biphosphate/Sodium Phosphate (Fleet Enema) 133 ml [place] ONCE@0800 CHU Stop: 06/20/21 12:00 Sodium Chloride (Sodium Chloride 0.9% 10 Ml Flush Syringe) 10 ml IV BID CHU Sodium Chloride (Sodium Chloride 0.9% 10 Ml Flush Syringe) 10 ml IV PRN PRN PRN Reason: LINE FLUSH Review of Systems All systems: negative Exam - Vital Signs Vital signs: Vital Signs Temp Pulse Resp BP Pulse Ox 98.1 F 83 18 106/70 100 06/19/21 16:22 06/19/21 16:22 06/19/21 16:22 06/19/21 16:22 06/19/21 16:22 - General Appearance General appearance: well-developed EENT: ATNC Respiratory: Clear to Ascultation Heart: regular, S1S2 Gastrointestinal: Absent: tenderness, distended Integumentary: warm and dry Musculoskeletal: Present: other (no edema) Results - Lab Results 06/19/21 18:49 06/20/21 05:53 Most recent lab results Calcium 9.0 mg/dL (8.4-10.2) 06/20/21 05:53 Assessment and Plan Impression: * Acute kidney injury secondary to prerenal azotemia due to poor po intake/GI loss --Baseline SCr 0.6-0.8mg/dL * Constipation * Hx of CVA with residual right hemiplegia * Hypertension * Type II diabetes mellitus * Anemia Plan: * Continue IVF for hydration * CT reviewed - no hydro * Will obtain urine lytes and UA * Hold ARB and Metformin in setting of JOHNNY * Glycemic control per PCP * Avoid potential nephrotoxins * Dose medications for renal function * AM labs
[2021-06-20] MEDS ORDERED: LACTULOSE 20 GM/30 ML ORAL LIQD PO SCH (10:00)
[2021-06-20] MEDS ORDERED: SERTRALINE 25 MG TAB PO SCH (11:00)
[2021-06-20] MEDS ORDERED: ASPIRIN EC 81 MG TAB PO SCH (11:00)
[2021-06-20] MEDS ORDERED: NON-FORMULARY EACH (Insulin Aspart (Nf) 100 UNIT/ML Units) SQ SCH (11:30)
[2021-06-20] MEDS ORDERED: MINERAL OIL ENEMA 133 ML PR ONE (12:05)
[2021-06-20] MEDS ORDERED: DOCUSATE SODIUM 100 MG CAP PO SCH (13:00)
[2021-06-20] MEDS ORDERED: HEPARIN 5,000 UNIT/1 ML VIAL SUB-Q SCH (14:00)
--- NOTE | 2021-06-20 14:56 | Discharge Summary ---
Providers - Providers Date of Admission: 06/19/21 22:25 Date of discharge: 06/20/21 Attending physician: BINH ZENDEJAS 06/19/21 22:25 Consult to Dietitian/Nutrition [CONS] Routine Physician Instructions: Reason For Exam: Reason for Consult: Diet education 06/20/21 06:15 Consult to Physician [CONS] Routine Comment: Consulting Provider: CORY DONNELLY Physician Instructions: Reason For Exam: JOHNNY 06/20/21 09:04 Physical Therapy Evaluation and Treat [CONS] Urgent Comment: Reason For Exam: For placement Primary care physician: CHAIRMAN CEO Hospitalization Condition: Stable Hospital course: 56-year-old female resident of a longterm with known history of diabetes mellitus, hypertension, CVA in December 2020 with right-sided hemiplegia presenting to the emergency room complaining of nausea and vomiting, decreased oral intake and constipation. Patient stated that she has not had a bowel movement in about a month. She has been taking some laxative including milk of magnesium without any significant improvement. Work-up in the emergency room today, significant findings were that of BUN of 61 and creatinine of 2.0. Patient had a slight elevation of troponin at 0.060. CT of the abdomen pelvis reveals findings compatible with constipation. Patient was placed iv fluid hydration, renal function improved, held ARB and Metformin in setting of JOHNNY Patient was given stool softener and enema, renal function improved, BP remained stable, had BM, denies any chest pain Patient was negative for COVID, she was then discharged home in stable condition with outpt followup. Disposition: [facility] Final Discharge Diagnosis (Prints w/discharge instructions): --JOHNNY, vasomotor nephropathy. --hypotension, medication induced. --Elevated troponin, due to JOHNNY. --h/o CVA with rightsided hameparesis Time spent for discharge: 34 minutes Core Measure Documentation - Palliative Care Palliative Care/ Comfort Measures: Not Applicable - Core Measures Any of the following diagnoses?: none Exam - Physical Exam Narrative exam: GENERAL: well-developed and well-nourished morbidly obese -[place] female lying on bed appeared to be in no discomfort. HEENT: Normocephalic. Atraumatic. No conjunctival congestion or icterus. Patient has moist mucous membranes. NECK: Supple. Trachea midline. CHEST/LUNGS: Clear to auscultated bilaterally, breathing nonlabored. No wheezes crackles or rhonchi. HEART/CARDIOVASCULAR: Regular in rate and rhythm. S1 and S2 positive. ABDOMEN: Abdomen is soft, nontender. Patient has normal bowel sounds. SKIN: There is no rash. Warm and dry. NEURO: Right-sided hemiparesis. Follows command. MUSCULOSKELETAL: No joint effusion or tenderness. EXTRIMITY: No edema, no cyanosis or clubbing. PSYCH: Cooperative. - Constitutional Vitals: Temp Pulse Resp BP Pulse Ox 98.1 F 70 0 L 104/71 100 06/19/21 16:22 06/20/21 07:01 06/20/21 07:01 06/20/21 07:01 06/20/21 07:01 Plan Activity: advance as tolerated Weight Bearing Status: Weight Bear as Tolerated Diet: low fat, low salt, diabetic, other (glucerna TID) Additional Instructions: Repeat BMP in 3 days Follow up with: PRIMARY CARE, [Primary Care Provider] - 3-5 Days
[2021-06-20 21:55] VITALS: BP 132/80
[2021-06-20] MEDS ORDERED: MELATONIN 5 MG TAB PO PRN (22:00)
== END 2021-06-20 23:58 ==
LOC: ED 15:57 → 3A 22:25 → 4A 06-20 06:25
PROVIDERS: ADMIT Internal Medicine Geriatric Medicine; ATTEND Internal Medicine
DX: N17.9 Acute kidney failure, unspecified (principal); Z20.822 Contact with and (suspected) exposure to COVID-19; K59.00 Constipation, unspecified; I63.9 Cerebral infarction, unspecified; I10 Essential (primary) hypertension; E11.9 Type 2 diabetes mellitus without complications; E86.0 Dehydration; D64.9 Anemia, unspecified; N17.0 Acute kidney failure with tubular necrosis; N28.9 Disorder of kidney and ureter, unspecified; I95.9 Hypotension, unspecified; E78.5 Hyperlipidemia, unspecified; E78.00 Pure hypercholesterolemia, unspecified; G47.30 Sleep apnea, unspecified; R77.8 Other specified abnormalities of plasma proteins; R29.700 NIHSS score 0; Z86.711 Personal history of pulmonary embolism; Z86.718 Personal history of other venous thrombosis and embolism; Z90.710 Acquired absence of both cervix and uterus; Z79.4 Long term (current) use of insulin; Z79.84 Long term (current) use of oral hypoglycemic drugs; Z79.82 Long term (current) use of aspirin; Z86.73 Personal history of transient ischemic attack (TIA), and cerebral infarction without residual deficits
CPT/HCPCS: 36415; 74176; 80048; 80053; 80061; 82962; 83690; 84484; 85025; 93005; 93010; 96361; 96372; 96374; 97161; 99285; G0378; J1644; J2405; J7030; U0003; Q0162